=== PATIENT | female | born 1985 | race Caucasian/White ===

== ENCOUNTER 2016-12-23 08:42 | Emergency (ER) | payer SELFPAY ==
[~2016-12-23] VITALS: Ht 167.6 cm; Wt 79.5 kg
[2016-12-23 08:44] VITALS: BP 171/93; PULSE 76; RESP 13; TEMP 98.5; O2SAT 99
[2016-12-23 08:55] VITALS: BP 148/94; PULSE 81; RESP 16; O2SAT 100
[2016-12-23] MEDS ORDERED: NAPR500 PO (08:56)
[2016-12-23] MEDS ORDERED: VENTAER INH (08:56)
[2016-12-23] MEDS ORDERED: DOXY100C PO (09:43)
[2016-12-23] MEDS ORDERED: METR-1 PO (09:43)
[2016-12-23] MEDS ORDERED: IBUP800T23 PO (09:43)
[2016-12-23] MEDS ORDERED: ULTR50TA5 PO (09:43)
--- NOTE | 2016-12-23 09:43 | PD ---
HPI . Pelvic pain Chief Complaint: Abdominal Pain Time Seen by Provider: 09:06 Travel History International Travel<30 days: No Contact w/Intl Traveler<30days: No Traveled to known affect area: No History of Present Illness HPI This patient presents with a three-day history of pelvic pain. She denies any associated symptoms such as dyspareunia, vaginal discharge, urinary tract symptoms or fever. She states that her symptoms are exacerbated by bending over. She denies any relieving factors. The pain is crampy and is rated 7/10. PFSH Past Medical History Asthma: Yes Headaches: Yes Hypertension: Yes Migraines: Yes Influenza Vaccination: No ?: Not LMP: CURRENTLY ON PERIOD Past Surgical History Section: Yes Cholecystectomy: Yes Eye Surgery: Yes (PLATE UNDER LEFT EYE) Other Surgery: Yes ( ERASMO REMOVED FROM NECK) Social History Alcohol Use: Yes (RARELY) Tobacco Use: Yes (04/06 PPD) Substance Use: No Allergies-Medications (Allergen,Severity, Reaction): Coded Allergies: Penicillins (Verified Allergy, Severe, RESPIRATORY DISTRESS, 12/23/16) amoxicillin (Verified Allergy, Severe, RESPIRATORY DISTRESS, 12/23/16) sumatriptan (Verified Allergy, Severe, RESPIRATORY DISTRESS, 12/23/16) Reported Meds & Prescriptions Reported Meds & Active Scripts Active Ultram (Tramadol HCl) 50 Mg Tab 50 Mg PO Q4H PRN Ibuprofen 800 Mg Tab 800 Mg PO Q8H PRN Flagyl (Metronidazole) 500 Mg Tab 500 Mg PO BID Doxycycline Hyclate 100 Mg Cap 100 Mg PO BID Reported Naprosyn (Naproxen) 500 Mg Tab 660 Mg PO BID PRN Ventolin Hfa 18 GM Inh (Albuterol Sulfate) 90 Mcg/Act Aer 2 Puff INH Q4-6H PRN Review of Systems Except as stated in HPI: all other systems reviewed are Neg General / Constitutional: No: Fever, Chills Gastrointestinal: No: Nausea, Vomiting, Diarrhea Genitourinary: Positive: Pelvic Pain, Vaginal Bleeding (current menses), No: Urgency, Frequency, Dysuria, Dyspareunia, Discharge Physical Exam Narrative GENERAL: Patient is awake and alert and is in no acute distress. SKIN: warm/dry. HEAD: Normocephalic. Atraumatic. EYES: Pupils equal and round. No scleral icterus. No injection or drainage. ENT: No nasal bleeding or discharge. Mucous membranes pink and moist. NECK: Trachea midline. Full range of motion without pain.. CARDIOVASCULAR: Regular rate and rhythm. RESPIRATORY: No accessory muscle use. Nonlabored respirations. GASTROINTESTINAL: Abdomen soft. Nontender. Nondistended. PELVIC: Normal female. Scant blood in the vaginal vault consistent with current menses. Positive cervical motion tenderness and bilateral adnexal tenderness. Her ovaries are easily palpable and there are no masses. Uterus is small and nontender. MUSCULOSKELETAL: No obvious deformities. NEUROLOGICAL: Awake and alert. No obvious cranial nerve deficits. Motor grossly within normal limits. Normal speech. PSYCHIATRIC: Appropriate mood and affect; insight and judgment normal. Data Data Last Documented VS Vital Signs Date Time Temp Pulse Resp B/P (MAP) Pulse Ox O2 Delivery O2 Flow Rate FiO2 12/23/16 08:55 81 16 148/94 (112) 100 Room Air 12/23/16 08:44 98.5 Orders Orders Gc And Chlamydia Pcr (12/23/16 09:06) Wet Prep Profile (12/23/16 09:06) Urinalysis - C+S If Indicated (12/23/16 09:06) Ed Urine Pregnancytest Poc (12/23/16 09:06) Ceftriaxone Inj (Rocephin Inj) (12/23/16 09:45) Lidocaine 1% Inj (50 Ml) (Xylocaine 1% I (12/23/16 09:45) Ketorolac Inj (Toradol Inj) (12/23/16 09:45) Labs Laboratory Tests Test 12/23/16 09:20 Urine Color YELLOW Urine Turbidity CLEAR Urine pH 6.5 Urine Specific [place] 1.022 Urine Protein NEG mg/dL Urine Glucose (UA) NEG mg/dL Urine Ketones NEG mg/dL Urine Occult Blood SMALL Urine Nitrite NEG Urine Bilirubin NEG Urine Urobilinogen LESS THAN 2.0 MG/DL Urine Leukocyte Esterase SMALL Urine RBC 24 /hpf Urine WBC 7 /hpf Urine Squamous Epithelial Cells 1 /hpf Urine Mucus FEW /lpf Microscopic Urinalysis Comment CULT NOT INDICATED Clue Cells (Wet Prep) NONE SEEN Vaginal Trichomonas (Wet Prep) NONE SEEN Vaginal Yeast (Wet Prep) NONE SEEN MDM Medical Decision Making Medical Screen Exam Complete: Yes Emergency Medical Condition: Yes Differential Diagnosis Differential diagnosis of pelvic pain includes but is not limited to UTI, PID, ectopic , spontaneous AB, constipation, viral illness Narrative Course This patient presents with a 3 day history of pelvic pain. She has tenderness to palpation on bimanual examination. There are no masses palpated. She will be treated presumptively for PID. HCG is negative. UA is negative for infection. Diagnosis Primary Impression: Pelvic pain in female Referrals: Rate Clerk Passenger Patient Instructions: General Instructions, Pelvic Pain (ED) Med/Other Pt SpecificInfo: Prescription(s) given Scripts Tramadol (Ultram) 50 Mg Tab 50 MG PO Q4H Y for PAIN, #12 TAB 0 Refills Prov: Eusebia Lawson MD 12/23/16 Ibuprofen (Ibuprofen) 800 Mg Tab 800 MG PO Q8H Y for Pain/Inflammation, #60 TAB 0 Refills Prov: Eusebia Lawson MD 12/23/16 Metronidazole (Flagyl) 500 Mg Tab 500 MG PO BID for Infection, #14 TAB 0 Refills Prov: Eusebia Lawson MD 12/23/16 Doxycycline Hyclate (Doxycycline Hyclate) 100 Mg Cap 100 MG PO BID for Infection, #20 CAP 0 Refills Prov: Eusebia Lawson MD 12/23/16 Disposition: 01 DISCHARGE HOME Condition: Stable Eusebia Lawson MD Dec 23, 2016 09:43
[2016-12-23 09:45] LABS: BLOOD, URINE SMALL (NEG); COMMENT (UR) CULT NOT INDICATED; CULTURE IF INDICATED CULT NOT INDICATED; GLUCOSE,URINE NEG (NEG); KETONE, URINE NEG (NEG); MUCUS URINE FEW /lpf (OCC); NITRITE,URINE NEG (NEG); PH, URINE 6.5 (5.0-8.5); SQUAMOUS EPITHELIAL CELL URINE 1 /hpf (0-5); URINE COLOR YELLOW (YELLW/STRAW)
[2016-12-23] MEDS ORDERED: cefTRIAXone 250 MG VIAL IM ONE (09:45)
[2016-12-23] MEDS ORDERED: KETOROLAC TROMETHAMINE 60 MG/2 ML (IM) VIAL IM ONE (09:45)
[2016-12-23] MEDS ORDERED: LIDOCAINE HCL 1% 50 ML VIAL XX ONE (09:45)
[2016-12-23 12:22] LABS: CHLAMYDIA PCR NOT DETECTED (NOT DETECT); NEISSERIA PCR NOT DETECTED (NOT DETECT)
== END 2016-12-23 10:19 | disposition home or self-care (01) ==
LOC: NEPD 08:42
DX: R10.2 Pelvic and perineal pain (principal); F17.200 Nicotine dependence, unspecified, uncomplicated
CPT/HCPCS: 81001; 84703; 87210; 87491; 87591; 96372; 99284; J0696; J1885

== ENCOUNTER 2016-12-28 04:30 | Emergency (ER) | payer SELFPAY ==
[~2016-12-28] VITALS: Ht 167.6 cm; Wt 79.5 kg
[~2016-12-28 04:30] MED LIST: DOXY100C PO; IBUP800T23 PO; METR-1 PO; NAPR500 PO; ULTR50TA5 PO; VENTAER INH
[2016-12-28 04:33] VITALS: BP 145/92; PULSE 87; RESP 18; TEMP 98; O2SAT 100
--- NOTE | 2016-12-28 05:36 | PD ---
HPI Chief Complaint: Abdominal Pain Time Seen by Provider: 05:14 Travel History International Travel<30 days: No Contact w/Intl Traveler<30days: No Traveled to known affect area: No History of Present Illness HPI The patient is a 31 year old female who presents to the [facility] emergency department with a history of a long standing problem with ovarian cysts. The patient reports that she has intermittent pains related to ovarian cysts, however she has not seen a senior marketing coordinator since 2008. The patient reports that the pelvic pain this time began on Monday. She reports that she was seen in the emergency department related to this and did have a pelvic examination done and was diagnosed with a pelvic infection. She reports that she received a prescription for doxycycline and Flagyl. The doxycycline was too expensive, therefore she did not fill it. The patient reports that she completed the Flagyl prescription. The patient reports that she also ran out of the tramadol and ibuprofen that she was taking. She has not followed up with a senior marketing coordinator locally yet. She denies having any fevers. She reports that the pain has been constant in the right lower quadrant and worse and today thus prompting her to come to the emergency department. She reports that she had pain with intercourse which was new. She denies having any vaginal discharge. She denies having any new sexual partners. The patient denies having any recent fevers. She reports that she has developed a cough today. Otherwise on review of systems she denies having any neck pain, chest pain, shortness of breath, vomiting, diarrhea, or neurologic symptoms. The patient reports that she did have some dysuria with urinating prior to arrival. She denies having any urinary frequency or urgency. LMP: 12/18. She has irregular cycles. [facility] Past Medical History Narrative Medical The patient's past medical history is significant for asthma, ovarian cysts, headaches, hypertension. Asthma: Yes Diminished Hearing: No Headaches: Yes Hypertension: Yes Migraines: Yes ?: Not LMP: 12/18/16 Past Surgical History Narrative Surgical The patient's past surgical history is significant for cholecystectomy, BTL, left ankle ORIF, right knee arthroscopy, left facial surgery. Section: Yes Cholecystectomy: Yes Eye Surgery: Yes (PLATE UNDER LEFT EYE) Other Surgery: Yes ( ERASMO REMOVED FROM NECK) Social History Alcohol Use: Yes (RARELY) Tobacco Use: Yes (1/4 PPD) Substance Use: No Allergies-Medications (Allergen,Severity, Reaction): Coded Allergies: Penicillins (Verified Allergy, Severe, RESPIRATORY DISTRESS, 12/28/16) amoxicillin (Verified Allergy, Severe, RESPIRATORY DISTRESS, 12/28/16) sumatriptan (Verified Allergy, Severe, RESPIRATORY DISTRESS, 12/28/16) latex (Verified Allergy, Mild, Rash, 12/28/16) Reported Meds & Prescriptions Reported Meds & Active Scripts Active Ultram (Tramadol HCl) 50 Mg Tab 50 Mg PO Q4H PRN Ibuprofen 800 Mg Tab 800 Mg PO Q8H PRN Reported Naprosyn (Naproxen) 500 Mg Tab 660 Mg PO BID PRN Ventolin Hfa 18 GM Inh (Albuterol Sulfate) 90 Mcg/Act Aer 2 Puff INH Q4-6H PRN Review of Systems Except as stated in HPI: all other systems reviewed are Neg General / Constitutional: No: Fever Eyes: No: Visual changes HENT: No: Headaches Cardiovascular: No: Chest Pain or Discomfort Respiratory: No: Shortness of Breath Gastrointestinal: Positive: Abdominal Pain Genitourinary: Positive: Pelvic Pain, No: Dysuria, Discharge, Vaginal Bleeding Musculoskeletal: No: Pain Skin: No Rash Neurologic: No: Weakness Psychiatric: No: Depression Endocrine: No: Polydipsia Hematologic/Lymphatic: No: Easy Bruising Physical Exam Narrative General: The patient is well-developed well-nourished female in no acute distress. Head and Neck exam: Head is normocephalic atraumatic. Eyes: EOMI, pupils are equal round and reactive to light. Nose: Midline septum with pink mucous membranes Mouth: Dentition unremarkable. Moist mucus membranes. Posterior oropharynx is not erythematous. No tonsillar hypertrophy. Uvula midline. Airway patent. Neck: No palpable lymphadenopathy. No nuchal rigidity. No thyromegaly. Cardiovascular: Regular rate and rhythm without murmurs, gallops, or rubs. Lungs: Clear to auscultation bilaterally. No wheezes, rhonchi, or rales. Abdomen: Soft, with tenderness on palpation along the suprapubic area and bilateral lower quadrants of the abdomen worse in the right compared to the left. No guarding, rebound, or rigidity. Normal bowel sounds are audible. No tenderness on palpation specifically over McBurney's point. Negative Ocampo sign. Extremities: No clubbing, cyanosis, or edema. 2+ pulses in all 4 extremities. No calf tenderness on palpation. Back: No costovertebral angle tenderness to palpation. Neurologic Exam: Grossly nonfocal. Skin Exam: No rash noted. Intact skin that is warm and dry. Data Data Last Documented VS Vital Signs Date Time Temp Pulse Resp B/P (MAP) Pulse Ox O2 Delivery O2 Flow Rate FiO2 12/28/16 04:33 98.0 87 18 145/92 (109) 100 Orders Orders Us Pelvis Comp Medical Billing Instructor/Non-Preg (12/28/16 05:38) Complete Blood Count With Diff (12/28/16 05:38) Basic Metabolic Panel (Bmp) (12/28/16 05:38) C-Reactive Protein (Crp) (12/28/16 05:38) Urinalysis - C+S If Indicated (12/28/16 05:38) Iv Access Insert/Monitor (12/28/16 05:38) Ecg Monitoring (12/28/16 05:38) Oximetry (12/28/16 05:38) Ed Urine Pregnancytest Poc (12/28/16 05:38) Ketorolac Inj (Toradol Inj) (12/28/16 05:45) Gc And Chlamydia Pcr (12/28/16 05:45) Labs Laboratory Tests Test 12/28/16 05:50 White Blood Count 10.6 TH/MM3 Red Blood Count 4.22 MIL/MM3 Hemoglobin 12.9 GM/DL Hematocrit 38.1 % Mean Corpuscular Volume 90.2 FL Mean Corpuscular Hemoglobin 30.5 PG Mean Corpuscular Hemoglobin Concent 33.8 % Red Cell Distribution Width 13.0 % Platelet Count 325 TH/MM3 Mean Platelet Volume 8.5 FL Neutrophils (%) (Auto) 61.1 % Lymphocytes (%) (Auto) 27.2 % Monocytes (%) (Auto) 8.1 % Eosinophils (%) (Auto) 3.3 % Basophils (%) (Auto) 0.3 % Neutrophils # (Auto) 6.5 TH/MM3 Lymphocytes # (Auto) 2.9 TH/MM3 Monocytes # (Auto) 0.9 TH/MM3 Eosinophils # (Auto) 0.4 TH/MM3 Basophils # (Auto) 0.0 TH/MM3 CBC Comment DIFF FINAL Differential Comment Urine Color YELLOW Urine Turbidity CLEAR Urine pH 6.0 Urine Specific [place] 1.019 Urine Protein NEG mg/dL Urine Glucose (UA) NEG mg/dL Urine Ketones NEG mg/dL Urine Occult Blood NEG Urine Nitrite NEG Urine Bilirubin NEG Urine Urobilinogen LESS THAN 2.0 MG/DL Urine Leukocyte Esterase TRACE Urine RBC LESS THAN 1 /hpf Urine WBC 3 /hpf Urine Squamous Epithelial Cells 1 /hpf Microscopic Urinalysis Comment CULT NOT INDICATED Blood Urea Nitrogen 19 MG/DL Creatinine 0.81 MG/DL Random Glucose 99 MG/DL Calcium Level 9.0 MG/DL Sodium Level 137 MEQ/L Potassium Level 4.2 MEQ/L Chloride Level 107 MEQ/L Carbon Dioxide Level 24.5 MEQ/L Anion Gap 6 MEQ/L Estimat Glomerular Filtration Rate 83 ML/MIN C-Reactive Protein LESS THAN 0.29 MG/DL [facility] Medical Decision Making Medical Screen Exam Complete: Yes Emergency Medical Condition: Yes Medical Record Reviewed: Yes Differential Diagnosis Ovarian torsion, versus urinary tract infection, versus endometriosis, versus ovarian cysts Narrative Course During the course of the patients emergency department visit, the patients history, examination, and differential diagnosis were reviewed with the patient. The patient had IV access obtained and blood work sent for analysis. The patient's electronic medical record was reviewed. The patient did have a urinalysis done on her last visit, a pelvic examination, however no wet prep for GC or chlamydia was done during the last emergency department visit. The patient was given a dose of Rocephin in the emergency department. An ultrasound of the pelvis has been ordered. The patient was initially provided Toradol for pain 30 mg IV. The patients laboratory studies were reviewed and remarkable for a white count 10.6, hemoglobin 12.9, platelets 325 with 8.1 monocytes, basic metabolic profile is remarkable for a BUN of 19, GFR of 83, C-reactive protein less than 0.29. Urinalysis shows trace leukocyte esterase otherwise were unremarkable. The patient's ultrasound is pending at the conclusion of my shift. The patient' s case was checked out to the oncoming emergency physician to disposition the patient based on the conclusion of her workup. Diagnosis Primary Impression: Abdominal pain Qualified Codes: R10.30 - Lower abdominal pain, unspecified Ricarda Carroll MD Dec 28, 2016 05:36
[2016-12-28] MEDS ORDERED: KETOROLAC TROMETHAMINE 30 MG/ML (IVP) VIAL IV PUSH ONE (05:45)
[2016-12-28 06:07] LABS: AUTOMATED NEUTROPHIL # 6.5 TH/MM3 (1.8-7.7); BASOPHIL % 0.3 % (0.0-2.0); EOSINOPHIL # 0.4 TH/MM3 (0-0.4); EOSINOPHIL % 3.3 % (0.0-4.0); HEMATOCRIT 38.1 % (35.0-46.0); HEMO FLAGS DIFF FINAL; LYMPH % 27.2 % (9.0-44.0); LYMPHOCYTE # 2.9 TH/MM3 (1.0-4.8); MEAN CELL VOLUME 90.2 FL (80.0-100.0); MEAN CORPUSCULAR HEMOGLOBIN 30.5 PG (27.0-34.0); MEAN CORPUSCULAR HGB CONC 33.8 % (32.0-36.0); MONO % 8.1 % (0.0-8.0); NEUT % 61.1 % (16.0-70.0); PLATELET COUNT 325 TH/MM3 (150-450); RED BLOOD COUNT 4.22 MIL/MM3 (4.00-5.30); WHITE BLOOD COUNT 10.6 TH/MM3 (4.0-11.0)
[2016-12-28 06:21] LABS: BLOOD, URINE NEG (NEG); GLUCOSE,URINE NEG (NEG); KETONE, URINE NEG (NEG); NITRITE,URINE NEG (NEG); SQUAMOUS EPITHELIAL CELL URINE 1 /hpf (0-5); URINE COLOR YELLOW (YELLW/STRAW)
[2016-12-28 06:23] LABS: COMMENT (UR) CULT NOT INDICATED; CULTURE IF INDICATED CULT NOT INDICATED
[2016-12-28 06:27] LABS: ANION GAP 6 MEQ/L (5-15); BICARBONATE 24.5 MEQ/L (21.0-32.0); BLOOD UREA NITROGEN 19 MG/DL (7-18); CHLORIDE 107 MEQ/L (98-107); GLOMERULAR FILTRATION RATE 83 ML/MIN (>89); POTASSIUM 4.2 MEQ/L (3.5-5.1); SODIUM (NA) 137 MEQ/L (136-145)
[2016-12-28 07:25] VITALS: RESP 16; O2SAT 97
[2016-12-28 07:30] VITALS: BP 140/89; PULSE 82; RESP 16; O2SAT 100
[2016-12-28 07:49] LABS: CHLAMYDIA PCR NOT DETECTED (NOT DETECT); NEISSERIA PCR NOT DETECTED (NOT DETECT)
--- NOTE | 2016-12-28 09:29 | RADRPT ---
EXAM DATE/TIME: 12/28/2016 07:31 [facility] COMPARISON: No previous studies available for comparison. INDICATIONS : Right pelvic pain for 1 week. MEDICAL HISTORY : Hypertension. Migriane. Ovarian cysts. Asthma. SURGICAL HISTORY : section. Cholecystectomy. Right knee surgery. Left ankle surgery. Birthmark removed from n reggie. ENCOUNTER: Initial ACUITY: 1 week PAIN SCORE: 6/10 LOCATION: Bilateral pelvis MEASUREMENTS: UTERUS: 9.4 x 4.0 x 5.6 cm ENDOMETRIAL STRIPE: 7 mm RIGHT OVARY: 2.6 x 1.6 x 1.8 cm LEFT OVARY: 3.4 x 1.6 x 2.0 cm FINDINGS: UTERUS: The myometrium has homogeneous echotexture without mass. RIGHT OVARY: Ovary contains no mass or significant cystic lesion. LEFT OVARY: Ovary contains no mass or significant cystic lesion. MISCELLANEOUS: No free fluid. CONCLUSION: 1. Unremarkable ultrasound examination of the pelvis. No findings of torsion Moi Torrez MD on December 28, 2016 at 9:26 Board Certified Radiologist. This report was verified electronically.
[2016-12-28] MEDS ORDERED: IBUP-1129 PO (09:41)
--- NOTE | 2016-12-28 09:41 | PD ---
Physical Exam Date Seen by Provider: Dec 28, 2016 Time Seen by Provider: 07:00 Narrative Patient seen and evaluated initially by Dr. Carroll, please see Dr. Carroll's note for further details. Signed out to me awaiting ultrasound. Laboratory Tests Test 12/28/16 05:50 Monocytes (%) (Auto) 8.1 % (0.0-8.0) Urine Leukocyte Esterase TRACE (NEG) Blood Urea Nitrogen 19 MG/DL (7-18) Estimat Glomerular Filtration Rate 83 ML/MIN (>89) Last 24 hours Impressions Pelvis Ultrasound 12/28/16 0538 Signed Impressions: Service Date/Time: Wednesday, December 28, 2016 07:31 - CONCLUSION: 1. Unremarkable ultrasound examination of the pelvis. No findings of torsion Moi Torrez MD Ultrasound didn't show any signs of acute processes. At this point, my plan would be to release her with symptomatic relief or pain and follow-up to DORM[facility]EEPER or primary care doctor. Finish prescriptions as directed. Return for any worsening in pain, vomiting, fevers, or new symptoms as needed. The plan has been discussed with her and she states understanding. Data Data Last Documented VS Vital Signs Date Time Temp Pulse Resp B/P (MAP) Pulse Ox O2 Delivery O2 Flow Rate FiO2 12/28/16 07:25 16 97 Room Air 12/28/16 04:33 98.0 87 Orders Orders Complete Blood Count With Diff (12/28/16 05:38) Basic Metabolic Panel (Bmp) (12/28/16 05:38) C-Reactive Protein (Crp) (12/28/16 05:38) Urinalysis - C+S If Indicated (12/28/16 05:38) Iv Access Insert/Monitor (12/28/16 05:38) Ecg Monitoring (12/28/16 05:38) Oximetry (12/28/16 05:38) Ed Urine Pregnancytest Poc (12/28/16 05:38) Ketorolac Inj (Toradol Inj) (12/28/16 05:45) Gc And Chlamydia Pcr (12/28/16 05:45) Us Pelvis Comp W Doppler (12/28/16 05:38) Labs Laboratory Tests Test 12/28/16 05:50 White Blood Count 10.6 TH/MM3 Red Blood Count 4.22 MIL/MM3 Hemoglobin 12.9 GM/DL Hematocrit 38.1 % Mean Corpuscular Volume 90.2 FL Mean Corpuscular Hemoglobin 30.5 PG Mean Corpuscular Hemoglobin Concent 33.8 % Red Cell Distribution Width 13.0 % Platelet Count 325 TH/MM3 Mean Platelet Volume 8.5 FL Neutrophils (%) (Auto) 61.1 % Lymphocytes (%) (Auto) 27.2 % Monocytes (%) (Auto) 8.1 % Eosinophils (%) (Auto) 3.3 % Basophils (%) (Auto) 0.3 % Neutrophils # (Auto) 6.5 TH/MM3 Lymphocytes # (Auto) 2.9 TH/MM3 Monocytes # (Auto) 0.9 TH/MM3 Eosinophils # (Auto) 0.4 TH/MM3 Basophils # (Auto) 0.0 TH/MM3 CBC Comment DIFF FINAL Differential Comment Urine Color YELLOW Urine Turbidity CLEAR Urine pH 6.0 Urine Specific [place] 1.019 Urine Protein NEG mg/dL Urine Glucose (UA) NEG mg/dL Urine Ketones NEG mg/dL Urine Occult Blood NEG Urine Nitrite NEG Urine Bilirubin NEG Urine Urobilinogen LESS THAN 2.0 MG/DL Urine Leukocyte Esterase TRACE Urine RBC LESS THAN 1 /hpf Urine WBC 3 /hpf Urine Squamous Epithelial Cells 1 /hpf Microscopic Urinalysis Comment CULT NOT INDICATED Blood Urea Nitrogen 19 MG/DL Creatinine 0.81 MG/DL Random Glucose 99 MG/DL Calcium Level 9.0 MG/DL Sodium Level 137 MEQ/L Potassium Level 4.2 MEQ/L Chloride Level 107 MEQ/L Carbon Dioxide Level 24.5 MEQ/L Anion Gap 6 MEQ/L Estimat Glomerular Filtration Rate 83 ML/MIN C-Reactive Protein LESS THAN 0.29 MG/DL Chlamydia trachomatis DNA (PCR) NOT DETECTED Neisseria gonorrhoeae DNA (PCR) NOT DETECTED [facility] Medical Record Reviewed: Yes Supervised Visit with JOSE E: No Diagnosis Primary Impression: Abdominal pain Qualified Codes: R10.30 - Lower abdominal pain, unspecified Med/Other Pt SpecificInfo: Prescription(s) given Scripts Ibuprofen (Motrin Ib) 200 Mg Tablet 600 MG PO QID Y for PAIN SCALE 1 TO 10, #28 Prov: Alfredito Burton MD 12/28/16 Disposition: 01 DISCHARGE HOME Condition: Stable Alfredito Burton MD Dec 28, 2016 09:41
== END 2016-12-28 10:00 | disposition home or self-care (01) ==
LOC: NEPE 04:30
DX: R10.30 Lower abdominal pain, unspecified (principal); R05 Cough; R30.0 Dysuria; J45.909 Unspecified asthma, uncomplicated; I10 Essential (primary) hypertension; F17.200 Nicotine dependence, unspecified, uncomplicated; Z79.899 Other long term (current) drug therapy; Z88.0 Allergy status to penicillin; Z88.8 Allergy status to other drugs, medicaments and biological substances
CPT/HCPCS: 76856; 80048; 81001; 84703; 85025; 86140; 87491; 87591; 93975; 96374; 99285; J1885

== ENCOUNTER 2017-02-19 17:52 | Emergency (ER) | payer SELFPAY ==
[~2017-02-19] VITALS: Ht 167.6 cm; Wt 79.5 kg
[~2017-02-19 17:52] MED LIST changes: -DOXY100C PO; +IBUP-1129 PO; +IBUP1TAB7 PO; -IBUP800T23 PO; -METR-1 PO; +TRAM50 PO; -ULTR50TA5 PO
[2017-02-19 17:53] VITALS: BP 174/100; PULSE 103; RESP 20; TEMP 99; O2SAT 99
--- NOTE | 2017-02-19 18:33 | RADRPT ---
EXAM DATE/TIME: 02/19/2017 18:20 [facility] COMPARISON: No previous studies available for comparison. INDICATIONS : Pain from fall in shower. MEDICAL HISTORY : Prior fracture. SURGICAL HISTORY : Surgical repair. Hardware removal. ENCOUNTER: Initial ACUITY: 1 day PAIN SCORE: 9/10 LOCATION: Left ankle. FINDINGS: Three view exam was performed of the left ankle. The bony structures are in normal alignment. No ev idence of fracture, dislocation, or soft tissue swelling. The ankle mortise is intact. No radiopaqu e foreign bodies are seen. Bony mineralization is normal. There is a single screw which traverses th e distal fibula. No evidence for acute fracture. CONCLUSION: No acute disease. Javier Suggs MD on February 19, 2017 at 18:31 Board Certified Radiologist. This report was verified electronically.
[2017-02-19] MEDS ORDERED: NABU1TAB37 PO (18:55)
--- NOTE | 2017-02-19 18:55 | PD ---
HPI . Ankle injury Chief Complaint: Injury Time Seen by Provider: 18:40 Travel History International Travel<30 days: No Contact w/Intl Traveler<30days: No Traveled to known affect area: No History of Present Illness HPI This patient presents with chief complaint of left ankle injury. Onset was about 3:30 PM today. She states that she slipped getting out of the shower rolling her ankle. No pain to the lateral aspect of the ankle. Pain has been unrelieved by Naprosyn and ice. Pain is exacerbated by movement of the ankle and by standing and walking on the ankle. Garth a throbbing pain which she rates 4-7/10 depending upon activity. Patient has had a previous left ankle fracture and has hardware in her ankle. [facility] Past Medical History Asthma: Yes Diabetes: No (BORDERLINE) Diminished Hearing: No Headaches: Yes Hypertension: Yes Migraines: Yes Influenza Vaccination: No ?: Not Para: 3 Past Surgical History Section: Yes Cholecystectomy: Yes Eye Surgery: Yes (PLATE UNDER LEFT EYE) Other Surgery: Yes ( ERASMO REMOVED FROM NECK) Social History Alcohol Use: Yes (RARELY) Tobacco Use: Yes (/ PPD) Substance Use: No Allergies-Medications (Allergen,Severity, Reaction): Coded Allergies: Penicillins (Verified Allergy, Severe, RESPIRATORY DISTRESS, 02/19/17) amoxicillin (Verified Allergy, Severe, RESPIRATORY DISTRESS, 02/19/17) sumatriptan (Verified Allergy, Severe, RESPIRATORY DISTRESS, 02/19/17) latex (Verified Allergy, Mild, Rash, 02/19/17) Reported Meds & Prescriptions Reported Meds & Active Scripts Active Reported Ventolin Hfa 18 GM Inh (Albuterol Sulfate) 90 Mcg/Act Aer 2 Puff INH Q4-6H PRN Review of Systems Except as stated in HPI: all other systems reviewed are Neg Physical Exam Narrative GENERAL: Awake and alert and in no acute distress. SKIN: Warm and dry. Mild bruising and swelling of the left lateral ankle. HEAD: Normocephalic/atraumatic. EYES: Pupils are equal. Extraocular movements are intact. NECK: Normal range of motion. CARDIOVASCULAR: Regular rate and rhythm. RESPIRATORY: Nonlabored respirations. MUSCULOSKELETAL: Atraumatic. Tender in the left lateral ankle especially over the anterior talofibular ligament. The ankle is stable. Distally neurovascularly intact. NEUROLOGICAL: Nonfocal. PSYCHIATRIC: Appropriate mood and affect. Data Data Last Documented VS Vital Signs Date Time Temp Pulse Resp B/P (MAP) Pulse Ox O2 Delivery O2 Flow Rate FiO2 02/19/17 17:53 99.0 103 20 174/100 (124) 99 Room Air Orders Orders Ankle, Complete ([id number]) (02/19/17 18:08) [employer] Request For Service (02/19/17 18:49) Simon Bandage (02/19/17 18:49) Crutches (02/19/17 ) Acetamin-Hydrocod 325-5 Mg ([place] 5-325 (02/19/17 19:00) Ed Discharge Order (02/19/17 18:49) MDM Medical Decision Making Medical Screen Exam Complete: Yes Emergency Medical Condition: Yes Differential Diagnosis Differential diagnosis of extremity trauma includes but is not limited to fracture, sprain or strain, dislocation, contusion Narrative Course This patient presents for the evaluation of a left ankle injury. She is tender over the left anterior talofibular ligament. The ankle is stable. Last Impressions Ankle X-Ray 02/19/[id number] Signed Impressions: Service Date/Time: Sunday, February 19, 2017 18:20 - CONCLUSION: No acute disease. Javier Suggs MD X-ray was independently viewed by me. I have instructed the patient in RICE. I will give her prescription for Relafen for pain. Diagnosis Primary Impression: Left ankle sprain Qualified Codes: S93.432A - Sprain of tibiofibular ligament of left ankle, initial encounter Patient Instructions: Ankle Sprain (DC), General Instructions Med/Other Pt SpecificInfo: Prescription(s) given Scripts Nabumetone (Nabumetone) 500 Mg Tab 500 MG PO BID for Pain-Inflammation, #60 TAB 0 Refills Prov: Eusebia Lawson MD 02/19/17 Disposition: 01 DISCHARGE HOME Condition: Stable Eusebia Lawson MD Feb 19, 2017 18:55
[2017-02-19] MEDS ORDERED: ACETAMINOPHEN/HYDROcodone 325 MG/5 MG TAB PO ONE (19:00)
== END 2017-02-19 19:26 | disposition home or self-care (01) ==
LOC: NEPD 17:52
DX: S93.432A Sprain of tibiofibular ligament of left ankle, initial encounter (principal); J45.909 Unspecified asthma, uncomplicated; I10 Essential (primary) hypertension; F17.200 Nicotine dependence, unspecified, uncomplicated; W01.0XXA Fall on same level from slipping, tripping and stumbling without subsequent striking against object, initial encounter; Z88.0 Allergy status to penicillin; Z88.8 Allergy status to other drugs, medicaments and biological substances
CPT/HCPCS: 73610; 99283; E0113; L1906

== ENCOUNTER 2017-03-23 10:10 | Emergency (ER) | payer SELFPAY ==
[~2017-03-23 10:10] MED LIST changes: -IBUP-1129 PO; -IBUP1TAB7 PO; +NABU1TAB37 PO; -NAPR500 PO; -TRAM50 PO
[2017-03-23 10:13] VITALS: BP 171/96; PULSE 91; RESP 20; TEMP 98.5; O2SAT 99
--- NOTE | 2017-03-23 10:25 | PD ---
HPI Chief Complaint: Cold / Flu Symptoms Time Seen by Provider: 10:21 Travel History International Travel<30 days: No Contact w/Intl Traveler<30days: No Traveled to known affect area: No History of Present Illness HPI 31-year-old female presents to emergency department for evaluation of cough, chest congestion, fever, chills, body aches worsening over last 2 weeks. Patient states her cough is now productive of a yellow white sputum. Denies any significant chest pain except for with cough. Denies any recent travel, or history of DVT. Denies any nausea vomiting. No diarrhea. Patient has no other symptoms to report. PFSH Past Medical History Asthma: Yes Diabetes: No (BORDERLINE) Diminished Hearing: No Headaches: Yes Hypertension: Yes Migraines: Yes Para: 3 Past Surgical History Section: Yes Cholecystectomy: Yes Eye Surgery: Yes (PLATE UNDER LEFT EYE) Other Surgery: Yes ( ERASMO REMOVED FROM NECK) Social History Alcohol Use: Yes (RARELY) Tobacco Use: Yes (04/06 PPD) Substance Use: No Allergies-Medications (Allergen,Severity, Reaction): Coded Allergies: Penicillins (Verified Allergy, Severe, RESPIRATORY DISTRESS, 02/19/17) amoxicillin (Verified Allergy, Severe, RESPIRATORY DISTRESS, 02/19/17) sumatriptan (Verified Allergy, Severe, RESPIRATORY DISTRESS, 02/19/17) latex (Verified Allergy, Mild, Rash, 02/19/17) Reported Meds & Prescriptions Reported Meds & Active Scripts Active Proair Hfa 8.5 GM Inh (Albuterol Sulfate) 90 Mcg/Act Aer 2 Puff INH Q4HR PRN 108 mcg/actuation Prednisone 50 Mg Tab 50 Mg PO DAILY 5 Days Zithromax Z-Colt (Azithromycin) 250 Mg Dspk 250 Mg PO DIRECTED 500 MG (2 tabs) day 1, then 1 tab days 2-5. Review of Systems Except as stated in HPI: all other systems reviewed are Neg Physical Exam Narrative GENERAL: Well-nourished male patient, ambulatory and in no acute distress. SKIN: Focused skin assessment warm/dry. HEAD: Atraumatic. Normocephalic. EYES: Pupils equal and round. No scleral icterus. No injection or drainage. ENT: No nasal bleeding or discharge. Drinks is erythematous without exudate. Airway is patent. Mucous membranes pink and moist. NECK: Trachea midline. No JVD. CARDIOVASCULAR: Regular rate and rhythm. No murmur appreciated. RESPIRATORY: No accessory muscle use. Coarse breath sounds and a faint Inspiratory wheeze to auscultation. Breath sounds equal bilaterally. GASTROINTESTINAL: Abdomen soft, non-tender, nondistended. Hepatic and splenic margins not palpable. MUSCULOSKELETAL: No obvious deformities. No clubbing. No cyanosis. No edema. NEUROLOGICAL: Awake and alert. No obvious cranial nerve deficits. Motor grossly within normal limits. Normal speech. PSYCHIATRIC: Appropriate mood and affect; insight and judgment normal. Data Data Last Documented VS Vital Signs Date Time Temp Pulse Resp B/P (MAP) Pulse Ox O2 Delivery O2 Flow Rate FiO2 03/23/17 11:44 03/23/17 10:13 98.5 91 20 99 Room Air Orders Orders Influenzae A/B Antigen (03/23/17 10:33) Albuterol-Ipratropium Neb (Duoneb Neb) (03/23/17 10:45) Dexamethasone Inj (Decadron Inj) (03/23/17 10:45) Ed Discharge Order (03/23/17 11:31) [facility] Medical Decision Making Medical Screen Exam Complete: Yes Emergency Medical Condition: Yes Medical Record Reviewed: Yes Differential Diagnosis Influenza versus pneumonia versus bronchitis versus other URI Narrative Course 31-year-old female presents to the emergency department for evaluation. Patient does have a coarse cough, coarse respirations, and a faint inspiratory wheeze. Patient is given albuterol treatment and Decadron. Influenza is negative. Due to duration of symptoms, worsening over the course of 2 weeks, patient will be started on azithromycin Z-Colt, short course oral steroids, and provided albuterol inhaler. She is encouraged to follow-up with her primary care provider and return immediately with any acute worsening of symptoms. Diagnosis Primary Impression: URI (upper respiratory infection) Qualified Codes: J06.9 - Acute upper respiratory infection, unspecified Referrals: Primary Care Physician Patient Instructions: General Instructions, Upper Respiratory Infection (ED) Additional Instructions: Humidified air may help to alleviate symptoms Tylenol and/or ibuprofen as directed on the package as needed for fever and/or pain Stop smoking tobacco cigarettes Return immediately to the emergency department with any acute worsening symptoms Med/Other Pt SpecificInfo: Prescription(s) given Scripts Albuterol 8.5 GM Inh (Proair Hfa 8.5 GM Inh) 90 Mcg/Act Aer 2 PUFF INH Q4HR Y for SHORTNESS OF BREATH, #1 INHALER 0 Refills 108 mcg/actuation Prov: Elke Tubbs 03/23/17 Prednisone (Prednisone) 50 Mg Tab 50 MG PO DAILY for 5 Days, #5 TAB 0 Refills Prov: Elke Tubbs 03/23/17 Azithromycin (Zithromax Z-Colt) 250 Mg Dspk 250 MG PO DIRECTED for Infection, #1 DSPK 0 Refills 500 MG (2 tabs) day 1, then 1 tab days 2-5. Prov: Elke Tubbs 03/23/17 Disposition: 01 DISCHARGE HOME Condition: Stable Elke Tubbs Mar 23, 2017 10:25
[2017-03-23] MEDS ORDERED: DEXAMETHASONE SOD PHOS 4 MG/ML VIAL IM ONE (10:45)
[2017-03-23] MEDS: RESP: ALBUTEROL 2.5 MG/IPRATROPIUM 0.5 MG NEB (SCH) INH (11:09)
[2017-03-23] MEDS ORDERED: ZITHTAB PO (11:33)
[2017-03-23] MEDS ORDERED: ALBUAER3 INH (11:33)
[2017-03-23] MEDS ORDERED: PRED50 PO (11:33)
== END 2017-03-23 11:45 | disposition home or self-care (01) ==
LOC: NEPD 10:10
DX: J06.9 Acute upper respiratory infection, unspecified (principal); J45.909 Unspecified asthma, uncomplicated; I10 Essential (primary) hypertension; F17.200 Nicotine dependence, unspecified, uncomplicated; Z79.899 Other long term (current) drug therapy; Z88.0 Allergy status to penicillin; Z88.8 Allergy status to other drugs, medicaments and biological substances
CPT/HCPCS: 87804; 94664; 96372; 99284; J1100

== ENCOUNTER 2017-06-01 06:10 | Observation (INO) | payer SELFPAY ==
[~2017-06-01] VITALS: Ht 167.6 cm; Wt 92.0 kg
[2017-06-01] VITALS (12 sets, daily range): BP systolic 109–154; BP diastolic 65–96; PULSE 56–108; RESP 16–20; TEMP 97.7–98.3; O2SAT 97–99
[~2017-06-01 06:10] MED LIST changes: +ALBUAER3 INH; -NABU1TAB37 PO; +PRED50 PO; -VENTAER INH; +ZITHTAB PO
[2017-06-01] MEDS ORDERED: LISI10TA3 PO (06:27)
[2017-06-01] MEDS ORDERED: MECLIZINE HCL 25 MG TAB PO ONE (07:00)
[2017-06-01] MEDS ORDERED: SODIUM CHLOR 0.9% 1000 ML INJ 1,000 ML IV ONE (07:00)
--- NOTE | 2017-06-01 07:04 | PD ---
HPI Chief Complaint: Syncope/Near-Syncope Time Seen by Provider: 06:25 Travel History International Travel<30 days: No Contact w/Intl Traveler<30days: No Traveled to known affect area: No History of Present Illness HPI Patient is a 32-year-old female who for the last 3 days had 3 syncopal episodes the first one she had just come out of the bathroom walking down the fish her boyfriend heard a thump and comes out and finds her face down on the hallway floor she rapidly regained consciousness there was no tonic-clonic activity and she was piggybacked herself baseline. Then yesterday it happened again in the bathroom after having urinated she stood up. She said she fell backwards and hit her head on the bathroom sink but has no lump in no injury no LOC and quickly regained her mentation again. Denies history of seizure and denies prior history of syncope patient denies dysuria she does have slight vertiginous symptoms and male. Again tonight it happened one more time denies chest pain denies shortness of breath denies any other symptoms. Patient does have a history of cholecystitis she's had a she's had to ligation surgery she's had trauma surgical to her knee on the right and she had a birthmark removed from her left neck cheek. In the ER her vitals are tachycardic at 101 BP is 150 /78 PFSH Past Medical History Asthma: Yes Diabetes: No (BORDERLINE) Diminished Hearing: No Headaches: Yes Hypertension: Yes Migraines: Yes ?: Not LMP: 05/18/17 Para: 3 Tubal Ligation: Yes Past Surgical History Section: Yes Cholecystectomy: Yes Eye Surgery: Yes (PLATE UNDER LEFT EYE) Other Surgery: Yes ( ERASMO REMOVED FROM NECK) Social History Alcohol Use: Yes (RARELY) Tobacco Use: Yes (04/06 PPD) Substance Use: No Allergies-Medications (Allergen,Severity, Reaction): Coded Allergies: Penicillins (Verified Allergy, Severe, RESPIRATORY DISTRESS, 02/19/17) amoxicillin (Verified Allergy, Severe, RESPIRATORY DISTRESS, 02/19/17) sumatriptan (Verified Allergy, Severe, RESPIRATORY DISTRESS, 02/19/17) latex (Verified Allergy, Mild, Rash, 02/19/17) Reported Meds & Prescriptions Reported Meds & Active Scripts Active Review of Systems Except as stated in HPI: all other systems reviewed are Neg Neurologic: Positive: Syncope Physical Exam Narrative GENERAL: Awake alert nonseptic nontoxic-appearing oriented 3 SKIN: Warm and dry. HEAD: Atraumatic. Normocephalic. No injury felt on her head EYES: Pupils equal and round. No scleral icterus. No injection or drainage. No nystagmus with horizontal tracking ENT: No nasal bleeding or discharge. Mucous membranes pink and moist. NECK: Trachea midline. No JVD. CARDIOVASCULAR: Regular rate and rhythm. Mild tachycardia sinus tach 101 RESPIRATORY: No accessory muscle use. Clear to auscultation. Breath sounds equal bilaterally. GASTROINTESTINAL: Abdomen soft, non-tender, nondistended. Hepatic and splenic margins not palpable. MUSCULOSKELETAL: Extremities without clubbing, cyanosis, or edema. No obvious deformities. NEUROLOGICAL: Awake and alert. No obvious cranial nerve deficits. Motor grossly within normal limits. Five out of 5 muscle strength in the arms and legs. Normal speech. PSYCHIATRIC: Appropriate mood and affect; insight and judgment normal. Data Data Last Documented VS Orders Orders Electrocardiogram (06/01/17 06:35) Orthostatic Vital Signs (06/01/17 06:37) Meclizine (Antivert) (06/01/17 07:00) Complete Blood Count With Diff (06/01/17 06:59) Comprehensive Metabolic Panel (06/01/17 06:59) Troponin I (06/01/17 06:59) Lipase (06/01/17 06:59) Sodium Chlor 0.9% 1000 Ml Inj (Ns 1000 M (06/01/17 07:00) Urinalysis - C+S If Indicated (06/01/17 08:41) Drug Screen, Random Urine (06/01/17 08:41) Chest, Single Ap (06/01/17 08:42) Ct Brain W/O Iv Contrast(Rout) (06/01/17 08:42) Ed Urine Pregnancytest Poc (06/01/17 08:42) Admit Order (Ed Use Only) (06/01/17 ) Manager Materials Management / Telemetry LAUREN.Q8H (06/01/17 08:44) Vital Signs (Adult) Q4H (06/01/17 08:44) Diet Heart Healthy (06/01/17 Breakfast) Activity Bed Rest (06/01/17 08:44) Labs Laboratory Tests Test 06/01/17 07:26 06/01/17 07:27 06/01/17 08:17 White Blood Count 7.4 TH/MM3 Red Blood Count 4.49 MIL/MM3 Hemoglobin 13.3 GM/DL Hematocrit 39.0 % Mean Corpuscular Volume 86.8 FL Mean Corpuscular Hemoglobin 29.5 PG Mean Corpuscular Hemoglobin Concent 34.0 % Red Cell Distribution Width 13.3 % Platelet Count 363 TH/MM3 Mean Platelet Volume 7.5 FL Neutrophils (%) (Auto) 70.3 % Lymphocytes (%) (Auto) 20.1 % Monocytes (%) (Auto) 7.3 % Eosinophils (%) (Auto) 2.0 % Basophils (%) (Auto) 0.3 % Neutrophils # (Auto) 5.2 TH/MM3 Lymphocytes # (Auto) 1.5 TH/MM3 Monocytes # (Auto) 0.5 TH/MM3 Eosinophils # (Auto) 0.1 TH/MM3 Basophils # (Auto) 0.0 TH/MM3 CBC Comment DIFF FINAL Differential Comment Blood Urea Nitrogen 8 MG/DL Creatinine 0.75 MG/DL Random Glucose 105 MG/DL Total Protein 9.3 GM/DL Albumin 4.1 GM/DL Calcium Level 8.6 MG/DL Alkaline Phosphatase 49 U/L Aspartate Amino Transf (AST/SGOT) 17 U/L Alanine Aminotransferase (ALT/SGPT) 15 U/L Total Bilirubin 0.3 MG/DL Sodium Level 139 MEQ/L Potassium Level 3.7 MEQ/L Chloride Level 106 MEQ/L Carbon Dioxide Level 26.1 MEQ/L Anion Gap 7 MEQ/L Estimat Glomerular Filtration Rate 90 ML/MIN Troponin I LESS THAN 0.02 NG/ML Lipase 159 U/L Ethyl Alcohol Level LESS THAN 3 MG/DL Beta HCG, Qualitative LESS THAN 1 MIU/ML Urine Color LIGHT-YELLOW Urine Turbidity CLEAR Urine pH 6.5 Urine Specific [place] 1.009 Urine Protein NEG mg/dL Urine Glucose (UA) NEG mg/dL Urine Ketones NEG mg/dL Urine Occult Blood NEG Urine Nitrite NEG Urine Bilirubin NEG Urine Urobilinogen LESS THAN 2.0 MG/DL Urine Leukocyte Esterase NEG Urine RBC LESS THAN 1 /hpf Urine WBC 2 /hpf Urine Squamous Epithelial Cells 2 /hpf Urine Mucus FEW /lpf Microscopic Urinalysis Comment CULT NOT INDICATED Urine Opiates Screen NEG Urine Barbiturates Screen NEG Urine Amphetamines Screen NEG Urine Benzodiazepines Screen NEG Urine Cocaine Screen POS Urine Cannabinoids Screen NEG MDM Medical Decision Making Medical Screen Exam Complete: Yes Emergency Medical Condition: Yes Differential Diagnosis pt has syncope of unknown origin neurocardiogenic vs cardiac cause vs hypotension of dehydration vs micturation syncope vs psychogenic syncope vs IHSS cardiac . other Narrative Course pt needs admission for further investigation of reason for syncope orthostatics had changes even after 1 ns liter and otherwise trop ekg and other labs were normal Diagnosis Primary Impression: Syncope Scripts Lisinopril (Lisinopril) 10 Mg Tab 10 MG PO DAILY for Blood Pressure Management, #30 TAB 0 Refills Prov: Raul Neal DO 06/02/17 Albuterol 8.5 GM Inh (Proair Hfa 8.5 GM Inh) 90 Mcg/Act Aer 2 PUFF INH Q4HR Y for SHORTNESS OF BREATH, #1 INHALER 0 Refills 108 mcg/actuation Prov: Raul Neal DO 06/02/17 Zane Elena MD Jun 01, 2017 07:04
[2017-06-01 07:38] LABS: AUTOMATED NEUTROPHIL # 5.2 TH/MM3 (1.8-7.7); BASOPHIL % 0.3 % (0.0-2.0); EOSINOPHIL # 0.1 TH/MM3 (0-0.4); HEMOGLOBIN 13.3 GM/DL (11.6-15.3); LYMPH % 20.1 % (9.0-44.0); LYMPHOCYTE # 1.5 TH/MM3 (1.0-4.8); MEAN CELL VOLUME 86.8 FL (80.0-100.0); MEAN CORPUSCULAR HEMOGLOBIN 29.5 PG (27.0-34.0); MEAN PLATELET VOLUME 7.5 FL (7.0-11.0); MONO % 7.3 % (0.0-8.0); MONOCYTE # 0.5 TH/MM3 (0-0.9); NEUT % 70.3 % (16.0-70.0); PLATELET COUNT 363 TH/MM3 (150-450); RED BLOOD COUNT 4.49 MIL/MM3 (4.00-5.30); RED CELL DISTRIBUTION WIDTH 13.3 % (11.6-17.2); WHITE BLOOD COUNT 7.4 TH/MM3 (4.0-11.0)
[2017-06-01 07:53] LABS: ALBUMIN 4.1 GM/DL (3.4-5.0); ALT (GPT) 15 U/L (10-53); AST (GOT) 17 U/L (15-37); BICARBONATE 26.1 MEQ/L (21.0-32.0); BLOOD UREA NITROGEN 8 MG/DL (7-18); CALCIUM 8.6 MG/DL (8.5-10.1); CHLORIDE 106 MEQ/L (98-107); CREATININE 0.75 MG/DL (0.50-1.00); GLOMERULAR FILTRATION RATE 90 ML/MIN (>89); GLUCOSE,RANDOM 105 MG/DL (74-106); SODIUM (NA) 139 MEQ/L (136-145)
[2017-06-01 07:57] LABS: ALKALINE PHOSPHATASE 49 U/L (45-117); TOTAL BILIRUBIN ADULT 0.3 MG/DL (0.2-1.0); TOTAL PROTEIN 9.3 GM/DL (6.4-8.2); TROPONIN I LESS THAN 0.02 NG/ML (0.02-0.05)
[2017-06-01] MEDS ORDERED: BISACODYL 10 MG SUPP RECTAL PRN (08:45)
[2017-06-01] MEDS ORDERED: NALOXONE HCL 0.4 MG/ML AMP IV PUSH PRN (08:45)
[2017-06-01] MEDS ORDERED: ACETAMINOPHEN 325 MG TAB PO PRN ×2 (08:45)
[2017-06-01] MEDS ORDERED: MAGNESIUM HYDROXIDE SUSP 30 ML CUP PO PRN (08:45)
[2017-06-01] MEDS ORDERED: SODIUM CHLORIDE 0.9% FLUSH 10 ML FLUSH IV FLUSH PRN ×2 (08:45)
[2017-06-01] MEDS ORDERED: MORPHINE SULFATE 2 MG/ML INJ IV PUSH PRN ×2 (08:45)
[2017-06-01] MEDS ORDERED: SENNOSIDES 8.6 MG TAB PO PRN (08:45)
[2017-06-01] MEDS ORDERED: METOCLOPRAMIDE HCL 10 MG/2 ML VIAL IV PUSH PRN (08:45)
[2017-06-01] MEDS ORDERED: ONDANSETRON HCL 4 MG/2 ML VIAL IVP PRN (08:45)
[2017-06-01] MEDS ORDERED: LACTULOSE SYRUP 20 GM/30 ML CUP PO PRN (08:45)
[2017-06-01] MEDS ORDERED: oxyCODONE/ACETAMINOPHEN 10 MG/325 MG TAB PO PRN (08:45)
[2017-06-01] MEDS ORDERED: oxyCODONE/ACETAMINOPHEN 5 MG/325 MG TAB PO PRN (08:45)
[2017-06-01] MEDS ORDERED: SODIUM CHLORIDE 0.9% FLUSH 10 ML FLUSH IV FLUSH SCH (09:00)
[2017-06-01] MEDS ORDERED: ALBUTEROL SULFATE 90 MCG/ACT HFA 8 GM INHALER INH PRN (09:00)
[2017-06-01] MEDS: DOCUSATE SODIUM 50 MG/SENNA 8.6 MG TAB PO SCH ×2 (09:00→21:20)
--- NOTE | 2017-06-01 09:10 | RADRPT ---
EXAM DATE/TIME: 06/01/2017 09:01 [facility] COMPARISON: No previous studies available for comparison. INDICATIONS : Multiple syncopal episodes for 3 days RADIATION DOSE: 56.35 CTDIvol (mGy) MEDICAL HISTORY : Hypertension. Diabetes mellitus type 2. SURGICAL HISTORY : None. ENCOUNTER: Initial ACUITY: 1 day PAIN SCALE: 0/10 LOCATION: cranial TECHNIQUE: Multiple contiguous axial images were obtained of the head. Using automated exposure control and adj ustment of the mA and/or kV according to patient size, radiation dose was kept as low as reasonably a chievable to obtain optimal diagnostic quality images. DICOM format image data is available electro nically for review and comparison. FINDINGS: CEREBRUM: The ventricles are normal for age. No evidence of midline shift, mass lesion, hemorrhage or acute in farction. No extra-axial fluid collections are seen. POSTERIOR FOSSA: The cerebellum and brainstem are intact. The 4th ventricle is midline. The cerebellopontine angle i s unremarkable. EXTRACRANIAL: The visualized portion of the orbits is intact. SKULL: The calvaria is intact. No evidence of skull fracture. CONCLUSION: Normal examination. Javid Whalen MD on June 01, 2017 at 9:09 Board Certified Radiologist. This report was verified electronically.
--- NOTE | 2017-06-01 09:29 | PD ---
Data Data Last Documented VS Vital Signs Date Time Temp Pulse Resp B/P (MAP) Pulse Ox O2 Delivery O2 Flow Rate FiO2 06/01/17 06:49 101 18 140/89 (106) 107 150/90 (110) 108 154/96 (115) 06/01/17 06:22 99 Room Air Orders Orders Electrocardiogram (06/01/17 06:35) Orthostatic Vital Signs (06/01/17 06:37) Meclizine (Antivert) (06/01/17 07:00) Complete Blood Count With Diff (06/01/17 06:59) Comprehensive Metabolic Panel (06/01/17 06:59) Troponin I (06/01/17 06:59) Lipase (06/01/17 06:59) Sodium Chlor 0.9% 1000 Ml Inj (Ns 1000 M (06/01/17 07:00) Urinalysis - C+S If Indicated (06/01/17 08:41) Drug Screen, Random Urine (06/01/17 08:41) Chest, Single Ap (06/01/17 08:42) Ct Brain W/O Iv Contrast(Rout) (06/01/17 08:42) Ed Urine Pregnancytest Poc (06/01/17 08:42) Admit Order (Ed Use Only) (06/01/17 ) Cloth Coverer / Telemetry LAUREN.Q8H (06/01/17 08:44) Vital Signs (Adult) Q4H (06/01/17 08:44) Diet Heart Healthy (06/01/17 Breakfast) Activity Bed Rest (06/01/17 08:44) Labs Laboratory Tests Test 06/01/17 07:26 06/01/17 08:17 White Blood Count 7.4 TH/MM3 Red Blood Count 4.49 MIL/MM3 Hemoglobin 13.3 GM/DL Hematocrit 39.0 % Mean Corpuscular Volume 86.8 FL Mean Corpuscular Hemoglobin 29.5 PG Mean Corpuscular Hemoglobin Concent 34.0 % Red Cell Distribution Width 13.3 % Platelet Count 363 TH/MM3 Mean Platelet Volume 7.5 FL Neutrophils (%) (Auto) 70.3 % Lymphocytes (%) (Auto) 20.1 % Monocytes (%) (Auto) 7.3 % Eosinophils (%) (Auto) 2.0 % Basophils (%) (Auto) 0.3 % Neutrophils # (Auto) 5.2 TH/MM3 Lymphocytes # (Auto) 1.5 TH/MM3 Monocytes # (Auto) 0.5 TH/MM3 Eosinophils # (Auto) 0.1 TH/MM3 Basophils # (Auto) 0.0 TH/MM3 CBC Comment DIFF FINAL Differential Comment Blood Urea Nitrogen 8 MG/DL Creatinine 0.75 MG/DL Random Glucose 105 MG/DL Total Protein 9.3 GM/DL Albumin 4.1 GM/DL Calcium Level 8.6 MG/DL Alkaline Phosphatase 49 U/L Aspartate Amino Transf (AST/SGOT) 17 U/L Alanine Aminotransferase (ALT/SGPT) 15 U/L Total Bilirubin 0.3 MG/DL Sodium Level 139 MEQ/L Potassium Level 3.7 MEQ/L Chloride Level 106 MEQ/L Carbon Dioxide Level 26.1 MEQ/L Anion Gap 7 MEQ/L Estimat Glomerular Filtration Rate 90 ML/MIN Troponin I LESS THAN 0.02 NG/ML Lipase 159 U/L Ethyl Alcohol Level LESS THAN 3 MG/DL MDM Medical Record Reviewed: Yes Supervised Visit with JOSE E: No Narrative Course EKG shows a normal sinus rhythm with a rate of 74 and no preexcitation morphology The CBC and BMP with LFTs and cardiac enzymes reveals no abnormality. Urinalysis and drug screen noted on per request a hospitalist along with chest x -ray and head CT. Syncope once daily for the last 3 days is of concern the patient will be admitted for ongoing monitoring and further evaluation prescription of admitting service. d/w Dr Neal Diagnosis Primary Impression: Syncope Qualified Codes: R55 - Syncope and collapse Admitting Information Admitting Physician Requests: Observation Maverick Florence MD Jun 01, 2017 09:29
[2017-06-01 09:35] LABS: BILIRUBIN, URINE NEG (NEG); BLOOD, URINE NEG (NEG); GLUCOSE,URINE NEG (NEG); KETONE, URINE NEG (NEG); MUCUS URINE FEW /lpf (OCC); NITRITE,URINE NEG (NEG); PH, URINE 6.5 (5.0-8.5); SQUAMOUS EPITHELIAL CELL URINE 2 /hpf (0-5); URINE COLOR LIGHT-YELLOW (YELLW/STRAW); URINE LEUKOCYTE ESTERASE NEG (NEG)
--- NOTE | 2017-06-01 09:38 | RADRPT ---
EXAM DATE/TIME: 06/01/2017 09:18 [facility] COMPARISON: No previous studies available for comparison. INDICATIONS : Syncope, short of breath for 3 days MEDICAL HISTORY : None. SURGICAL HISTORY : None. ENCOUNTER: Initial ACUITY: 3 days PAIN SCORE: 0/10 LOCATION: Bilateral chest FINDINGS: A single view of the chest demonstrates the lungs to be symmetrically aerated without evidence of mas s, infiltrate or effusion. The cardiomediastinal contours are unremarkable. Osseous structures are intact. CONCLUSION: No acute disease. Ariel Pitt MD on June 01, 2017 at 9:36 Board Certified Radiologist. This report was verified electronically.
--- NOTE | 2017-06-01 10:55 | EKG ---
Date Performed: 06/01/2017 Time Performed: 06:18:16 PTAGE: 32 years EKG: SINUS TACHYCARDIA NONSPECIFIC T-WAVE ABNORMALITY ABNORMAL RHYTHM ECG NO PREVIOUS TRACING DOCTOR: Adriana Rosa Interpretating Date/Time 06/01/2017 10:51:43
--- NOTE | 2017-06-01 11:15 | HHI.HP ---
[facility] Primary [facility]ician No Primary Care Physician Admission Diagnosis Syncope Diagnoses: (1) Tobacco abuse Diagnosis: Secondary (2) Cocaine use Diagnosis: Principal (3) Hypertension Diagnosis: Principal (4) Obese Diagnosis: Secondary (5) Migraine Diagnosis: Secondary (6) Syncope Diagnosis: Principal Chief Complaint: Syncope/near syncope Travel History International Travel<30 Days: No Contact w/Intl Traveler <30 Da: No Traveled to Known Affected Are: No History of Present Illness Patient is a 32-year-old female. Who for the last 3 days has had 3 syncopal episodes. The first 1 happened when she came out of the bathroom walking down the fish. Her boyfriend heard a thump and came sent and found her face down on the hallway floor she rapidly regained consciousness and did not have any seizure-like activity noted then yesterday it happened again in the bathroom after having urinated she stood up she states she fell backwards and hit her head in the bathroom sink but did not feel any lump or injury no loss of consciousness quickly regained her mentation again. Patient denies any history of seizures or syncope in the past sometimes has some vertigo-like symptoms then it happened again last night but denies any shortness of breath or chest pain patient has a history of this cholecystectomy as well as section as well as tubal ligation head trauma surgery to her knee on the right had a birthmark removed from her left neck and cheek Will be placed in observation for evaluation regarding syncope and will consult neurology and get EEGs echoes and carotid Dopplers So far the only thing positive is the cocaine in her urine Review of Systems Constitutional: DENIES: Diaphoretic episodes, Fatigue, Fever, Weight gain, Weight loss, Chills, Dizziness, Change in appetite, Night Sweats Endocrine: DENIES: Abnorml menstrual pattern, Heat/cold intolerance, Polydipsia Eyes: DENIES: Blurred vision, Diplopia, Eye inflammation, Eye pain, Vision loss , Photosensitivity Ears, nose, mouth, throat: COMPLAINS OF: Vertigo, DENIES: Tinnitus, Hearing loss, Nasal discharge, Oral lesions, Throat pain, Hoarseness, Ear Pain, Running Nose Respiratory: DENIES: Apneas, Cough, Snoring, Wheezing, Hemoptysis, Sputum production, Shortness of breath Cardiovascular: DENIES: Chest pain, Palpitations, Syncope, Dyspnea on Exertion , PND, Orthopnea Gastrointestinal: DENIES: Abdominal pain, Black stools, Bloody stools, Constipation, Diarrhea, Nausea, Vomiting Genitourinary: DENIES: Abnormal vaginal bleeding, Dysmenorrhea, Dyspareunia, Sexual dysfunction Musculoskeletal: DENIES: Joint pain, Muscle aches, Stiffness, Joint Swelling, Back pain, Neck pain Integumentary: DENIES: Abnormal pigmentation, Pruritus, Rash, Nail changes, Breast masses, Breast skin changes Hematologic/lymphatic: DENIES: Bruising, Lymphadenopathy Immunologic/allergic: DENIES: Eczema, Urticaria Neurologic: DENIES: Abnormal gait, Headache, Localized weakness, Paresthesias, Seizures, Speech Problems, Tremor, Poor Balance Psychiatric: DENIES: Anxiety, Confusion, Mood changes, Depression, Hallucinations, Agitation, Suicidal Ideation, Homicidal Ideation Except as stated in HPI: all other systems reviewed are Neg Past Family Social History Past Medical History Hypertension Borderline diabetes Headaches Migraines Asthma Obesity Past Surgical History section Cholecystectomy Plate under left eye surgery Birthmark removal from her neck Reported Medications Reported Meds & Active Scripts Active Proair Hfa 8.5 GM Inh (Albuterol Sulfate) 90 Mcg/Act Aer 2 Puff INH Q4HR PRN 108 mcg/actuation Reported Lisinopril 10 Mg Tab 10 Mg PO DAILY Allergies: Coded Allergies: Penicillins (Verified Allergy, Severe, RESPIRATORY DISTRESS, 02/19/17) amoxicillin (Verified Allergy, Severe, RESPIRATORY DISTRESS, 02/19/17) sumatriptan (Verified Allergy, Severe, RESPIRATORY DISTRESS, 02/19/17) latex (Verified Allergy, Mild, Rash, 02/19/17) Active Ordered Medications Current Medications Meclizine HCl (Antivert) 25 mg ONCE ONCE PO Last administered on 06/01/17at 07: 00; Start 06/01/17 at 07:00; Stop 06/01/17 at 07:01; Status DC Sodium Chloride 1,000 ml @ 999 mls/hr BOLUS ONCE IV Last administered on at 08:00; Start 06/01/17 at 07:00; Stop 3/1/18 at 08:00; Status DC Sodium Chloride 1,000 ml @ 100 mls/hr Q10H IV ; Start 06/01/17 at 08:41 Sodium Chloride (NS Flush) 2 ml UNSCH PRN IV FLUSH FLUSH AFTER USING IV ACCESS ; Start 06/01/17 at 08:45 Sodium Chloride (NS Flush) 2 ml BID IV FLUSH ; Start 06/01/17 at 09:00 Acetaminophen (Tylenol) 650 mg Q4H PRN PO TEMP > 100.4; Start 06/01/17 at 08:45 Ondansetron HCl (Zofran Inj) 4 mg Q6H PRN IVP NAUSEA OR VOMITING; Start at 08:45 Metoclopramide HCl (Reglan Inj) 5 mg Q6H PRN IV PUSH NAUSEA OR VOMITING; Start 06/01/17 at 08:45 Acetaminophen (Tylenol) 650 mg Q6H PRN PO PAIN SCALE 1 TO 2; Start 06/01/17 at 08:45 Oxycodone/ Acetaminophen (Percocet 5-325 Mg) 1 tab Q6H PRN PO PAIN SCALE 3 TO 5; Start 06/01/17 at 08:45 Oxycodone/ Acetaminophen (Percocet 10-325 Mg) 1 tab Q6H PRN PO PAIN SCALE 6 TO 10; Start 06/01/17 at 08:45 Morphine Sulfate (Morphine Inj) 2 mg Q3H PRN IV PUSH Pain 3-5; if unable to take PO; Start 06/01/17 at 08:45 Morphine Sulfate (Morphine Inj) 4 mg Q3H PRN IV PUSH Pain 6-10;if unable to take PO; Start 06/01/17 at 08:45 Naloxone HCl (Narcan Inj) 0.4 mg UNSCH PRN IV PUSH SEE LABEL COMMENTS; Start at 08:45 Senna/Docusate Sodium (Sandee-Colace) 1 tab BID PO ; Start 06/01/17 at 09:00 Magnesium Hydroxide (Milk Of Magnesia Liq) 30 ml Q12H PRN PO Mild constipation ; Start 06/01/17 at 08:45 Sennosides (Senokot) 17.2 mg Q12H PRN PO Moderate constipation; Start 06/01/17 at 08:45 Bisacodyl (Dulcolax Supp) 10 mg DAILY PRN RECTAL SEVERE CONSITIPATION; Start at 08:45 Lactulose (Lactulose Liq) 30 ml DAILY PRN PO SEVERE CONSITIPATION; Start at 08:45 Sodium Chloride (NS Flush) 2 ml UNSCH PRN IV FLUSH FLUSH AFTER USING IV ACCESS ; Start 06/01/17 at 08:45; Stop 06/01/17 at 09:14; Status DC Sodium Chloride (NS Flush) 2 ml BID IV FLUSH ; Start 06/01/17 at 09:00; Stop 06/01 at 09:14; Status DC Albuterol Sulfate (Proair Hfa Inh) 2 puff Q4HR PRN INH SHORTNESS OF BREATH; Start 06/01/17 at 09:00 Lisinopril (Prinivil) 10 mg DAILY PO ; Start 06/01/17 at 09:00 Family History Probably some hypertension in the family Social History Smokes tobacco and marijuana Urine drug screen is positive for cocaine Was drinking alcohol last night Physical Exam Vital Signs Vital Signs Date Time Temp Pulse Resp B/P (MAP) Pulse Ox O2 Delivery O2 Flow Rate FiO2 06/01/17 09:56 06/01/17 06:49 101 18 140/89 (106) 107 150/90 (110) 108 154/96 (115) 06/01/17 06:22 99 Room Air 06/01/17 06:22 108 18 150/96 (114) 99 Room Air 06/01/17 06:13 96 17 140/89 (106) 99 Physical Exam GENERAL: This is a well-nourished, well-developed patient, in no apparent distress. SKIN: No rashes, ecchymoses or lesions. Cool and dry. HEAD: Atraumatic. Normocephalic. No temporal or scalp tenderness. EYES: Pupils equal round and reactive. Extraocular motions intact. No scleral icterus. No injection or drainage. ENT: Nose without bleeding, purulent drainage or septal hematoma. Throat without erythema, tonsillar hypertrophy or exudate. Uvula midline. Airway patent. Tongue is midline NECK: Trachea midline. No JVD or lymphadenopathy. Supple, nontender, no meningeal signs. CARDIOVASCULAR: Regular rate and rhythm without murmurs, gallops, or rubs. S1- S2 no S3 or S4 RESPIRATORY: Clear to auscultation. Breath sounds equal bilaterally. No wheezes , rales, or rhonchi. GASTROINTESTINAL: Abdomen soft, non-tender, nondistended. No hepato-splenomegaly , or palpable masses. No guarding. Obese MUSCULOSKELETAL: Extremities without clubbing, cyanosis, or edema. No joint tenderness, effusion, or edema noted. No calf tenderness. Negative Homans sign bilaterally. NEUROLOGICAL: Awake and alert. Cranial nerves II through XII intact. Motor and sensory grossly within normal limits. Five out of 5 muscle strength in all muscle groups. Normal speech. Insight and judgment is good Mood and behavior is appropriate Laboratory Laboratory Tests Test 06/01/17 07:26 06/01/17 07:27 06/01/17 08:17 White Blood Count 7.4 Red Blood Count 4.49 Hemoglobin 13.3 Hematocrit 39.0 Mean Corpuscular Volume 86.8 Mean Corpuscular Hemoglobin 29.5 Mean Corpuscular Hemoglobin Concent 34.0 Red Cell Distribution Width 13.3 Platelet Count 363 Mean Platelet Volume 7.5 Neutrophils (%) (Auto) 70.3 Lymphocytes (%) (Auto) 20.1 Monocytes (%) (Auto) 7.3 Eosinophils (%) (Auto) 2.0 Basophils (%) (Auto) 0.3 Neutrophils # (Auto) 5.2 Lymphocytes # (Auto) 1.5 Monocytes # (Auto) 0.5 Eosinophils # (Auto) 0.1 Basophils # (Auto) 0.0 CBC Comment DIFF FINAL Differential Comment Blood Urea Nitrogen 8 Creatinine 0.75 Random Glucose 105 Total Protein 9.3 Albumin 4.1 Calcium Level 8.6 Alkaline Phosphatase 49 Aspartate Amino Transf (AST/SGOT) 17 Alanine Aminotransferase (ALT/SGPT) 15 Total Bilirubin 0.3 Sodium Level 139 Potassium Level 3.7 Chloride Level 106 Carbon Dioxide Level 26.1 Anion Gap 7 Estimat Glomerular Filtration Rate 90 Troponin I LESS THAN 0.02 Lipase 159 Ethyl Alcohol Level LESS THAN 3 Beta HCG, Qualitative LESS THAN 1 Urine Color LIGHT-YELLOW Urine Turbidity CLEAR Urine pH 6.5 Urine Specific Driscoll 1.009 Urine Protein NEG Urine Glucose (UA) NEG Urine Ketones NEG Urine Occult Blood NEG Urine Nitrite NEG Urine Bilirubin NEG Urine Urobilinogen LESS THAN 2.0 Urine Leukocyte Esterase NEG Urine RBC LESS THAN 1 Urine WBC 2 Urine Squamous Epithelial Cells 2 Urine Mucus FEW Microscopic Urinalysis Comment CULT NOT INDICATED Urine Opiates Screen NEG Urine Barbiturates Screen NEG Urine Amphetamines Screen NEG Urine Benzodiazepines Screen NEG Urine Cocaine Screen POS Urine Cannabinoids Screen NEG Result Diagram: 06/01/17 0726 06/01/17725 Imaging Last Impressions Head CT 06/01/17841 Signed Impressions: Service Date/Time: June 09:01 - CONCLUSION: Normal examination. Javid Whalen MD Chest X-Ray 06/01/17841 Signed Impressions: Service Date/Time: June 09:18 - CONCLUSION: No acute disease. MD Sara Fraire VTE Risk Assessment Caprini VTE Risk Assessment: No/Low Risk (score <= 1) Caprini Risk Assessment Model Point Value = 1 Point Value = 2 Point Value = 3 Point Value = 5 Age 41-60 Minor surgery BMI > 25 kg/m2 Swollen legs Varicose veins or History of unexplained or recurrent spontaneous Oral contraceptives or hormone replacement Sepsis (< 1 month) Serious lung disease, including pneumonia (< 1 month) Abnormal pulmonary function Acute myocardial infarction Congestive heart failure (< 1 month) History of inflammatory bowel disease Medical patient at bed rest Age 61-74 Arthroscopic surgery Major open surgery (> 45 min) Laparoscopic surgery (> 45 min) Malignancy Confined to bed (> 72 hours) Immobilizing plaster cast Central venous access Age >= 75 History of VTE Family history of VTE Factor V Leiden Prothrombin [id number] Lupus anticoagulant Anticardiolipin antibodies Elevated serum homocysteine Heparin-induced thrombocytopenia Other congenital or acquired thrombophilia Stroke (< 1 month) Elective arthroplasty Hip, pelvis, or leg fracture Acute spinal cord injury (< 1 month) Prophylaxis Regimen Total Risk Factor Score Risk Level Prophylaxis Regimen 0-1 Low Early ambulation 2 Moderate Order ONE of the following: *Sequential Compression Device (SCD) *Heparin 5000 units SQ BID 3-4 Higher Order ONE of the following medications: *Heparin 5000 units SQ TID *Enoxaparin/Lovenox 40 mg SQ daily (WT < 150 kg, CrCl > 30 mL/min) *Enoxaparin/Lovenox 30 mg SQ daily (WT < 150 kg, CrCl > 10-29 mL/min) *Enoxaparin/Lovenox 30 mg SQ BID (WT < 150 kg, CrCl > 30 mL/min) AND/OR *Sequential Compression Device (SCD) 5 or more Highest Order ONE of the following medications: *Heparin 5000 units SQ TID (Preferred with Epidurals) *Enoxaparin/Lovenox 40 mg SQ daily (WT < 150 kg, CrCl > 30 mL/min) *Enoxaparin/Lovenox 30 mg SQ daily (WT < 150 kg, CrCl > 10-29 mL/min) *Enoxaparin/Lovenox 30 mg SQ BID (WT < 150 kg, CrCl > 30 mL/min) AND *Sequential Compression Device (SCD) Assessment and Plan Assessment and Plan Syncopal episodes multiple possible due to poor sleep hygiene and/or cocaine -We will get ultrasounds of the carotids and echocardiogram as well as an EEG and neurology will be consulted -CAT scan of the head is negative so far -chest x-ray is negative Hypertension resume her CIARRA inhibitor Obesity recommend weight loss Marijuana use recommend cessation Tobacco abuse recommend cessation Cocaine use with positive urine drug screen recommend cessation Continue on DVT prophylaxis with SCDs GI prophylaxis not needed Code Status Full code Discussed Condition With RN and patient an ER physician Problem Qualifiers (1) Syncope: Qualified Codes: R55 - Syncope and collapse Raul Neal DO Jun 01, 2017 11:15
--- NOTE | 2017-06-01 12:32 | RADRPT ---
EXAM DATE/TIME: 06/01/2017 11:10 [place] COMPARISON: No previous studies available for comparison. INDICATIONS : Syncope. MEDICAL HISTORY : Migraines. Hypertension. Asthma. Diabetes. SURGICAL HISTORY : Cholecystectomy. section. Tubal ligation. Eye surgery. Left ankle surgery with hardware. Rig ht knee surgery. ENCOUNTER: Initial ACUITY: 1 day PAIN SCORE: 0/10 LOCATION: Bilateral neck PEAK SYSTOLIC VELOCITIES (cm/sec): ICA/CCA RATIO: Right: 0.7 Left: 0.8 ICA: Right: 98 Left: 116 CCA: Right: 71 Left: 94 ECA: Right: 97 Left: 98 VERTEBRAL: Right: 57 antegrade Left: 49 antegrade Elevated flow velocities and ICA/CCA ratios have been found to correlate with increased degrees of vessel stenosis, calculated as percentage of diameter relative to a normal segment of distal ICA/CCA FINDINGS: RIGHT CAROTID: No significant stenosis is visualized. The waveforms are within normal limits. LEFT CAROTID: No significant stenosis is visualized. The waveforms are within normal limits. VERTEBRAL ARTERIES: Antegrade flow is seen in both vertebral arteries. MISCELLANEOUS: None. CONCLUSION: Normal examination. Brian Alvarado MD on June 01, 2017 at 12:30 Board Certified Radiologist. This report was verified electronically.
[2017-06-01] MEDS: LISINOPRIL 10 MG TAB PO SCH (12:55)
[2017-06-01] MEDS: SODIUM CHLORIDE 0.9% FLUSH 10 ML FLUSH IV FLUSH SCH ×2 (12:56→21:00)
[2017-06-01] MEDS: SODIUM CHLOR 0.9% 1000 ML INJ 1,000 ML IV SCH ×2 (13:17→18:41)
--- NOTE | 2017-06-01 14:55 | MG ---
cc: Pamela Howard MD EEG#: [id number] REFERRING PHYSICIAN: Raul Neal DO ROOM: F Awake, drowsy, asleep. Hyperventilation, good effort. Photic stimulation. CT normal. A 32-year-old admitted with syncope, stands up and passes out, then regains consciousness quickly. UDS positive for cocaine. On ProAir, lisinopril, Antivert. DESCRIPTION OF RECORD: She has an alpha rhythm of 10 Hz, 20-60 uV. Symmetrical background. EKG looks sinus. Photic stimulation reveals a driving response. The hvac field service technician is asking the patient to stay awake. Coughing. Hyperventilation was done. There is some movement artifact. Noted she was snoring. IMPRESSION: Overall normal appearing electroencephalogram. Some snoring events which cause more artifact, but no true epileptic activity noted. Clinical correlation. Pamela Howard MD DF/TI , 02:45 PM , 02:54 PM
--- NOTE | 2017-06-01 17:51 | ECHRPT ---
Indication: CVA/TIA CONCLUSIONS Normal left ventricular size. Mild concentric left ventricular hypertrophy. The left ventricular systolic function is low normal with an estimated ejection fraction in the rang e of 50- 55%. The left atrial size is [id number] dilated. The right atrial size is yxmc-sp-umruizkfbr dilated. No atrial level shunt is demonstrated by color flow Doppler interrogation. Cqskt-bs-yqvw mitral valve regurgitation. There is mild tricuspid valve regurgitation. The estimated pulmonary arterial pressure is 37.7 mmHg. BP: 140 / 89 HR: 101 Rhythm: Sinus MEASUREMENTS (Male / Female) Normal Values Technical Quality:Fair 2D ECHO LV Diastolic Diameter PLAX 4.6 cm 4.2 - 5.9 / 3.9 - 5.3 cm LV Systolic Diameter PLAX 3.6 cm IVS Diastolic Thickness 1.1 cm 0.6 - 1.0 / 0.6 - 0.9 cm LVPW Diastolic Thickness 1.1 cm 0.6 - 1.0 / 0.6 - 0.9 cm LV Relative Wall Thickness 0.5 RV Internal Dim ED PLAX 3.0 cm LVOT Diameter 1.8 cm Aortic Root Diameter 2.6 cm LA Systolic Diameter LX 3.6 cm 3.0 - 4.0 / 2.7 - 3.8 cm DOPPLER AV Peak Velocity 135.0 cm/s AV Peak Gradient 7.3 mmHg AV Mean Gradient 4.0 mmHg AV Velocity Time Integral 27.0 cm LVOT Peak Velocity 115.0 cm/s LVOT Peak Gradient 5.3 mmHg LVOT Velocity Time Integral 18.6 cm AV Area Cont Eq vti 1.8 cm AV Area Cont Eq pk 2.2 cm Mitral E Point Velocity 80.0 cm/s Mitral A Point Velocity 42.0 cm/s Mitral E to A Ratio 1.9 LV E' Lateral Velocity 15.5 cm/s Mitral E to LV E' Lateral Ratio 5.2 LV E' Septal Velocity 11.0 cm/s Mitral E to LV E' Septal Ratio 7.3 TR Peak Velocity 263.0 cm/s TR Peak Gradient 28.0 mmHg Right Atrial Pressure 10.0 mmHg Pulmonary Artery Systolic Pressu 37.7 mmHg Right Ventricular Systolic Press 37.7 mmHg PV Peak Velocity 85.0 cm/s PV Peak Gradient 2.9 mmHg FINDINGS LEFT VENTRICLE Normal left ventricular size. Mild concentric left ventricular hypertrophy. The left ventricular systolic function is low normal with an estimated ejection fraction in the rang e of 50- 55%. RIGHT VENTRICLE Normal right ventricular size and systolic function. LEFT ATRIUM The left atrial size is vxki-la-uylkunbsvs dilated. RIGHT ATRIUM The right atrial size is mrvo-dm-pioqchzlaj dilated. ATRIAL SEPTUM No atrial level shunt is demonstrated by color flow Doppler interrogation. AORTA The aortic root and proximal ascending aorta are not well visualized. MITRAL VALVE Ydkpt-uv-xmws mitral valve regurgitation. AORTIC VALVE Trileaflet aortic valve. No aortic valve stenosis or regurgitation. TRICUSPID VALVE There is mild tricuspid valve regurgitation. The estimated pulmonary arterial pressure is 37.7 mmHg. PULMONARY VALVE No pulmonary valve regurgitation or stenosis. VESSELS The inferior vena cava was not well visualized. PERICARDIUM No pericardial effusion. Jonas Lewis MD, FACC, FSCAI (Electronically Signed) Final Date:01 June 2017 17:50
[2017-06-02] VITALS: PULSE 56
[2017-06-02 01:50] LABS: TROPONIN I LESS THAN 0.02 NG/ML (0.02-0.05)
[2017-06-02 04:00] VITALS: PULSE 51
[2017-06-02 04:14] VITALS: BP 126/74; PULSE 56; RESP 16; TEMP 97.8; O2SAT 98
[2017-06-02] MEDS: SODIUM CHLOR 0.9% 1000 ML INJ 1,000 ML IV SCH (05:03)
[2017-06-02 07:45] LABS: AUTOMATED NEUTROPHIL # 4.1 TH/MM3 (1.8-7.7); BASOPHIL % 0.3 % (0.0-2.0); EOSINOPHIL # 0.3 TH/MM3 (0-0.4); EOSINOPHIL % 3.9 % (0.0-4.0); HEMATOCRIT 34.1 % (35.0-46.0); HEMOGLOBIN 11.5 GM/DL (11.6-15.3); LYMPHOCYTE # 2.3 TH/MM3 (1.0-4.8); MEAN CELL VOLUME 87.7 FL (80.0-100.0); MEAN CORPUSCULAR HEMOGLOBIN 29.6 PG (27.0-34.0); MEAN CORPUSCULAR HGB CONC 33.7 % (32.0-36.0); MEAN PLATELET VOLUME 7.8 FL (7.0-11.0); MONO % 7.2 % (0.0-8.0); MONOCYTE # 0.5 TH/MM3 (0-0.9); NEUT % 56.6 % (16.0-70.0); PLATELET COUNT 285 TH/MM3 (150-450); RED BLOOD COUNT 3.88 MIL/MM3 (4.00-5.30); WHITE BLOOD COUNT 7.2 TH/MM3 (4.0-11.0)
[2017-06-02 07:47] LABS: PROTHROMBIN TIME - PATIENT 10.5 SEC (9.8-11.6)
[2017-06-02 08:00] VITALS: BP_SYST 104; BP_SYST 105; BP_SYST 112; BP_DIAS 63; BP_DIAS 66; BP_DIAS 71; PULSE 60; RESP 16; TEMP 98.4; O2SAT 97
[2017-06-02 08:09] VITALS: PULSE 55
[2017-06-02 08:13] LABS: ALBUMIN 2.9 GM/DL (3.4-5.0); ALKALINE PHOSPHATASE 40 U/L (45-117); ALT (GPT) 12 U/L (10-53); AST (GOT) 9 U/L (15-37); BICARBONATE 21.6 MEQ/L (21.0-32.0); BLOOD UREA NITROGEN 10 MG/DL (7-18); CALCIUM 8.1 MG/DL (8.5-10.1); CHLORIDE 107 MEQ/L (98-107); CREATININE 0.66 MG/DL (0.50-1.00); GLOMERULAR FILTRATION RATE 104 ML/MIN (>89); GLUCOSE,RANDOM 87 MG/DL (74-106); SODIUM (NA) 138 MEQ/L (136-145); TOTAL BILIRUBIN ADULT 0.5 MG/DL (0.2-1.0); TOTAL PROTEIN 6.7 GM/DL (6.4-8.2)
[2017-06-02] MEDS: LISINOPRIL 10 MG TAB PO SCH (08:54)
[2017-06-02] MEDS: SODIUM CHLORIDE 0.9% FLUSH 10 ML FLUSH IV FLUSH SCH (08:54)
[2017-06-02] MEDS: DOCUSATE SODIUM 50 MG/SENNA 8.6 MG TAB PO SCH (08:54)
--- NOTE | 2017-06-02 10:41 | HHI.PR ---
Subjective Remarks Patient is a 32-year-old female. Who for the last 3 days has had 3 syncopal episodes. The first 1 happened when she came out of the bathroom walking down the fish. Her boyfriend heard a thump and came sent and found her face down on the hallway floor she rapidly regained consciousness and did not have any seizure-like activity noted then yesterday it happened again in the bathroom after having urinated she stood up she states she fell backwards and hit her head in the bathroom sink but did not feel any lump or injury no loss of consciousness quickly regained her mentation again. Patient denies any history of seizures or syncope in the past sometimes has some vertigo-like symptoms then it happened again last night but denies any shortness of breath or chest pain patient has a history of this cholecystectomy as well as section as well as tubal ligation head trauma surgery to her knee on the right had a birthmark removed from her left neck and cheek Will be placed in observation for evaluation regarding syncope and will not consult neurology and get EEGs echoes and carotid Dopplers So far the only thing positive is the cocaine in her urine 3-2 all studies have been negative. EEG is negative CAT scan of the brain is negative Carotid ultrasounds are negative Physical therapy and occupational therapy have cleared her completely He will be discharged home We will need a note to return to work We will discharge to home today Recommend smoking cessation Recommend alcohol cessation Recommend marijuana cessation Recommend cocaine cessation Objective Vitals Vital Signs Date Time Temp Pulse Resp B/P (MAP) Pulse Ox O2 Delivery O2 Flow Rate FiO2 06/02/17 08:09 55 06/02/17 08:00 98.4 60 16 104/63 (77) 97 105/66 (79) 112/71 (85) 06/02/17 04:14 97.8 56 16 126/74 (91) 98 06/02/17 04:00 51 06/02/17 00:00 56 06/01/17 23:17 98.3 56 16 109/65 (80) 97 Automatic Cuff 06/01/17 20:49 60 06/01/17 19:48 97.7 57 16 119/75 (90) 97 129/86 (100) 06/01/17 19:05 97 06/01/17 16:18 62 06/01/17 15:35 97.9 83 20 122/85 (97) 98 06/01/17 13:45 98.2 57 20 121/70 (87) 98 06/01/17 11:00 62 I/O 06/01/17 06/01/17 06/01/17 06/02/17 06/02/17 06/02/17 07:00 15:00 23:00 07:00 15:00 23:00 Intake Total 1000 ml Balance 1000 ml Intake IV Total 1000 ml # Voids 1 Result Diagram: 06/02/17 0630 06/02/17 0630 Other Results Laboratory Tests Test 06/01/17 07:26 06/01/17 07:27 06/01/17 08:17 06/01/17 13:57 White Blood Count 7.4 TH/MM3 Red Blood Count 4.49 MIL/MM3 Hemoglobin 13.3 GM/DL Hematocrit 39.0 % Mean Corpuscular Volume 86.8 FL Mean Corpuscular Hemoglobin 29.5 PG Mean Corpuscular Hemoglobin Concent 34.0 % Red Cell Distribution Width 13.3 % Platelet Count 363 TH/MM3 Mean Platelet Volume 7.5 FL Neutrophils (%) (Auto) 70.3 % Lymphocytes (%) (Auto) 20.1 % Monocytes (%) (Auto) 7.3 % Eosinophils (%) (Auto) 2.0 % Basophils (%) (Auto) 0.3 % Neutrophils # (Auto) 5.2 TH/MM3 Lymphocytes # (Auto) 1.5 TH/MM3 Monocytes # (Auto) 0.5 TH/MM3 Eosinophils # (Auto) 0.1 TH/MM3 Basophils # (Auto) 0.0 TH/MM3 CBC Comment DIFF FINAL Differential Comment Blood Urea Nitrogen 8 MG/DL Creatinine 0.75 MG/DL Random Glucose 105 MG/DL Total Protein 9.3 GM/DL Albumin 4.1 GM/DL Calcium Level 8.6 MG/DL Alkaline Phosphatase 49 U/L Aspartate Amino Transf (AST/SGOT) 17 U/L Alanine Aminotransferase (ALT/SGPT) 15 U/L Total Bilirubin 0.3 MG/DL Sodium Level 139 MEQ/L Potassium Level 3.7 MEQ/L Chloride Level 106 MEQ/L Carbon Dioxide Level 26.1 MEQ/L Anion Gap 7 MEQ/L Estimat Glomerular Filtration Rate 90 ML/MIN Troponin I LESS THAN 0.02 NG/ML LESS THAN 0.02 NG/ML Lipase 159 U/L Ethyl Alcohol Level LESS THAN 3 MG/DL Beta HCG, Qualitative LESS THAN 1 MIU/ML Urine Color LIGHT-YELLOW Urine Turbidity CLEAR Urine pH 6.5 Urine Specific Bolt 1.009 Urine Protein NEG mg/dL Urine Glucose (UA) NEG mg/dL Urine Ketones NEG mg/dL Urine Occult Blood NEG Urine Nitrite NEG Urine Bilirubin NEG Urine Urobilinogen LESS THAN 2.0 MG/DL Urine Leukocyte Esterase NEG Urine RBC LESS THAN 1 /hpf Urine WBC 2 /hpf Urine Squamous Epithelial Cells 2 /hpf Urine Mucus FEW /lpf Microscopic Urinalysis Comment CULT NOT INDICATED Urine Opiates Screen NEG Urine Barbiturates Screen NEG Urine Amphetamines Screen NEG Urine Benzodiazepines Screen NEG Urine Cocaine Screen POS Urine Cannabinoids Screen NEG Total Creatine Kinase 52 U/L Test 06/02/17 06:30 White Blood Count 7.2 TH/MM3 Red Blood Count 3.88 MIL/MM3 Hemoglobin 11.5 GM/DL Hematocrit 34.1 % Mean Corpuscular Volume 87.7 FL Mean Corpuscular Hemoglobin 29.6 PG Mean Corpuscular Hemoglobin Concent 33.7 % Red Cell Distribution Width 13.0 % Platelet Count 285 TH/MM3 Mean Platelet Volume 7.8 FL Neutrophils (%) (Auto) 56.6 % Lymphocytes (%) (Auto) 32.0 % Monocytes (%) (Auto) 7.2 % Eosinophils (%) (Auto) 3.9 % Basophils (%) (Auto) 0.3 % Neutrophils # (Auto) 4.1 TH/MM3 Lymphocytes # (Auto) 2.3 TH/MM3 Monocytes # (Auto) 0.5 TH/MM3 Eosinophils # (Auto) 0.3 TH/MM3 Basophils # (Auto) 0.0 TH/MM3 CBC Comment DIFF FINAL Differential Comment Prothrombin Time 10.5 SEC Prothromb Time International Ratio 1.0 RATIO Blood Urea Nitrogen 10 MG/DL Creatinine 0.66 MG/DL Random Glucose 87 MG/DL Total Protein 6.7 GM/DL Albumin 2.9 GM/DL Calcium Level 8.1 MG/DL Alkaline Phosphatase 40 U/L Aspartate Amino Transf (AST/SGOT) 9 U/L Alanine Aminotransferase (ALT/SGPT) 12 U/L Total Bilirubin 0.5 MG/DL Sodium Level 138 MEQ/L Potassium Level 3.5 MEQ/L Chloride Level 107 MEQ/L Carbon Dioxide Level 21.6 MEQ/L Anion Gap 9 MEQ/L Estimat Glomerular Filtration Rate 104 ML/MIN Imaging Last Impressions Head CT 06/01/1742 Signed Impressions: Service Date/Time: June 09:01 - CONCLUSION: Normal examination. Javid Whalen MD Chest X-Ray 06/01/17 0842 Signed Impressions: Service Date/Time: June 09:18 - CONCLUSION: No acute disease. Ariel Pitt MD Carotid Artery Ultrasound 06/01/17 0000 Signed Impressions: Service Date/Time: June 11:10 - CONCLUSION: Normal examination. Brian Alvarado MD Objective Remarks GENERAL: This is a well-nourished, well-developed patient, in no apparent distress. SKIN: No rashes, ecchymoses or lesions. Cool and dry. HEAD: Atraumatic. Normocephalic. No temporal or scalp tenderness. EYES: Pupils equal round and reactive. Extraocular motions intact. No scleral icterus. No injection or drainage. ENT: Nose without bleeding, purulent drainage or septal hematoma. Throat without erythema, tonsillar hypertrophy or exudate. Uvula midline. Airway patent. Tongue is midline NECK: Trachea midline. No JVD or lymphadenopathy. Supple, nontender, no meningeal signs. CARDIOVASCULAR: Regular rate and rhythm without murmurs, gallops, or rubs. S1- S2 no S3 or S4 RESPIRATORY: Clear to auscultation. Breath sounds equal bilaterally. No wheezes , rales, or rhonchi. GASTROINTESTINAL: Abdomen soft, non-tender, nondistended. No hepato-splenomegaly , or palpable masses. No guarding. Obese MUSCULOSKELETAL: Extremities without clubbing, cyanosis, or edema. No joint tenderness, effusion, or edema noted. No calf tenderness. Negative Homans sign bilaterally. NEUROLOGICAL: Awake and alert. Cranial nerves II through XII intact. Motor and sensory grossly within normal limits. Five out of 5 muscle strength in all muscle groups. Normal speech. Insight and judgment is good Mood and behavior is appropriate Procedures EEG negative Medications and IVs Current Medications Meclizine HCl (Antivert) 25 mg ONCE ONCE PO Last administered on 06/01/17at 07: 00; Start 06/01/17 at 07:00; Stop 06/01/17 at 07:01; Status DC Sodium Chloride 1,000 ml @ 999 mls/hr BOLUS ONCE IV Last administered on at 08:00; Start 06/01/17 at 07:00; Stop 06/01/17 at 08:00; Status DC Sodium Chloride 1,000 ml @ 100 mls/hr Q10H IV Last administered on 06/02/17at 05 :03; Start 06/01/17 at 08:41 Sodium Chloride (NS Flush) 2 ml UNSCH PRN IV FLUSH FLUSH AFTER USING IV ACCESS ; Start 06/01/17 at 08:45 Sodium Chloride (NS Flush) 2 ml BID IV FLUSH Last administered on 06/01/17at 12: 56; Start 06/01/17 at 09:00 Acetaminophen (Tylenol) 650 mg Q4H PRN PO TEMP > 100.4; Start 06/01/17 at 08:45 Ondansetron HCl (Zofran Inj) 4 mg Q6H PRN IVP NAUSEA OR VOMITING; Start at 08:45 Metoclopramide HCl (Reglan Inj) 5 mg Q6H PRN IV PUSH NAUSEA OR VOMITING; Start 06/01/17 at 08:45 Acetaminophen (Tylenol) 650 mg Q6H PRN PO PAIN SCALE 1 TO 2; Start 06/01/17 at 08:45 Oxycodone/ Acetaminophen (Percocet 5-325 Mg) 1 tab Q6H PRN PO PAIN SCALE 3 TO 5; Start 06/01/17 at 08:45 Oxycodone/ Acetaminophen (Percocet 10-325 Mg) 1 tab Q6H PRN PO PAIN SCALE 6 TO 10; Start 06/01/17 at 08:45 Morphine Sulfate (Morphine Inj) 2 mg Q3H PRN IV PUSH Pain 3-5; if unable to take PO; Start 06/01/17 at 08:45 Morphine Sulfate (Morphine Inj) 4 mg Q3H PRN IV PUSH Pain 6-10;if unable to take PO; Start 06/01/17 at 08:45 Naloxone HCl (Narcan Inj) 0.4 mg UNSCH PRN IV PUSH SEE LABEL COMMENTS; Start at 08:45 Senna/Docusate Sodium (Sandee-Colace) 1 tab BID PO Last administered on 3/1/18at 21:20; Start 06/01/17 at 09:00 Magnesium Hydroxide (Milk Of Magnesia Liq) 30 ml Q12H PRN PO Mild constipation ; Start 06/01/17 at 08:45 Sennosides (Senokot) 17.2 mg Q12H PRN PO Moderate constipation; Start 06/01/17 at 08:45 Bisacodyl (Dulcolax Supp) 10 mg DAILY PRN RECTAL SEVERE CONSITIPATION; Start at 08:45 Lactulose (Lactulose Liq) 30 ml DAILY PRN PO SEVERE CONSITIPATION; Start at 08:45 Sodium Chloride (NS Flush) 2 ml UNSCH PRN IV FLUSH FLUSH AFTER USING IV ACCESS ; Start 06/01/17 at 08:45; Stop 06/01/17 at 09:14; Status DC Sodium Chloride (NS Flush) 2 ml BID IV FLUSH ; Start 06/01/17 at 09:00; Stop 06/01 at 09:14; Status DC Albuterol Sulfate (Proair Hfa Inh) 2 puff Q4HR PRN INH SHORTNESS OF BREATH; Start 06/01/17 at 09:00 Lisinopril (Prinivil) 10 mg DAILY PO Last administered on 06/01/17at 12:55; Start 06/01/17 at 09:00 A/P Problem List: (1) Tobacco abuse ICD Code: Z72.0 - Tobacco use (2) Cocaine use ICD Code: F14.90 - Cocaine use, unspecified, uncomplicated (3) Hypertension ICD Code: I10 - Essential (primary) hypertension (4) Obese ICD Code: E66.9 - Obesity, unspecified (5) Migraine ICD Code: G43.909 - Migraine, unspecified, not intractable, without status migrainosus (6) Syncope ICD Code: R55 - Syncope and collapse Status: Acute Assessment and Plan Syncopal episodes multiple possible due to poor sleep hygiene and/or cocaine -We will get ultrasounds of the carotids and echocardiogram as well as an EEG and neurology will be consulted -CAT scan of the head is negative so far -chest x-ray is negative Hypertension resume her CIARRA inhibitor Obesity recommend weight loss Marijuana use recommend cessation Tobacco abuse recommend cessation Cocaine use with positive urine drug screen recommend cessation Continue on DVT prophylaxis with SCDs GI prophylaxis not needed Code Status Full code Can be discharged to home Discharge Planning Discharge to home today Stop cocaine. Stop marijuana stop tobacco. Stop illicit. Stop alcohol Problem Qualifiers (1) Syncope: Qualified Codes: R55 - Syncope and collapse Raul Neal DO Jun 02, 2017 10:41
[2017-06-02] MEDS ORDERED: LISI10TA3 PO (10:43)
[2017-06-02] MEDS ORDERED: ALBUAER3 INH (10:43)
--- NOTE | 2017-06-02 10:44 | HHI.DS ---
Discharge Summary Admission Date Jun 01, 2017 at 08:46 Discharge Date: Jun 02, 2017 Admitting Diagnosis Syncope (1) Tobacco abuse ICD Code: Z72.0 - Tobacco use Diagnosis: Secondary (2) Cocaine use ICD Code: F14.90 - Cocaine use, unspecified, uncomplicated Diagnosis: Principal (3) Hypertension ICD Code: I10 - Essential (primary) hypertension Diagnosis: Principal (4) Obese ICD Code: E66.9 - Obesity, unspecified Diagnosis: Secondary (5) Migraine ICD Code: G43.909 - Migraine, unspecified, not intractable, without status migrainosus Diagnosis: Secondary (6) Syncope ICD Code: R55 - Syncope and collapse Diagnosis: Principal Status: Acute Procedures EEG negative Brief History - From Admission Patient is a 32-year-old female. Who for the last 3 days has had 3 syncopal episodes. The first 1 happened when she came out of the bathroom walking down the fish. Her boyfriend heard a thump and came sent and found her face down on the hallway floor she rapidly regained consciousness and did not have any seizure-like activity noted then yesterday it happened again in the bathroom after having urinated she stood up she states she fell backwards and hit her head in the bathroom sink but did not feel any lump or injury no loss of consciousness quickly regained her mentation again. Patient denies any history of seizures or syncope in the past sometimes has some vertigo-like symptoms then it happened again last night but denies any shortness of breath or chest pain patient has a history of this cholecystectomy as well as section as well as tubal ligation head trauma surgery to her knee on the right had a birthmark removed from her left neck and cheek Will be placed in observation for evaluation regarding syncope and will consult neurology and get EEGs echoes and carotid Dopplers So far the only thing positive is the cocaine in her urine CBC/BMP: 06/02/17 0630 06/02/17 0630 Significant Findings Laboratory Tests Test 06/01/17 07:26 06/01/17 07:27 06/01/17 08:17 06/01/17 13:57 Neutrophils (%) (Auto) 70.3 % (16.0-70.0) Total Protein 9.3 GM/DL (6.4-8.2) Troponin I LESS THAN 0.02 NG/ML LESS THAN 0.02 NG/ML Urine Mucus FEW /lpf (OCC) Urine Cocaine Screen POS (NEG) Test 06/02/17 06:30 Red Blood Count 3.88 MIL/MM3 (4.00-5.30) Hemoglobin 11.5 GM/DL (11.6-15.3) Hematocrit 34.1 % (35.0-46.0) Albumin 2.9 GM/DL (3.4-5.0) Calcium Level 8.1 MG/DL (8.5-10.1) Alkaline Phosphatase 40 U/L (45-117) Aspartate Amino Transf (AST/SGOT) 9 U/L (15-37) Imaging Last Impressions Head CT 06/01/17 0842 Signed Impressions: Service Date/Time: June 09:01 - CONCLUSION: Normal examination. Javid Whalen MD Chest X-Ray 06/01/17 0842 Signed Impressions: Service Date/Time: June 09:18 - CONCLUSION: No acute disease. Ariel Pitt MD Carotid Artery Ultrasound 06/01/17 0000 Signed Impressions: Service Date/Time: June 11:10 - CONCLUSION: Normal examination. Brian Alvarado MD PE at Discharge GENERAL: This is a well-nourished, well-developed patient, in no apparent distress. SKIN: No rashes, ecchymoses or lesions. Cool and dry. HEAD: Atraumatic. Normocephalic. No temporal or scalp tenderness. EYES: Pupils equal round and reactive. Extraocular motions intact. No scleral icterus. No injection or drainage. ENT: Nose without bleeding, purulent drainage or septal hematoma. Throat without erythema, tonsillar hypertrophy or exudate. Uvula midline. Airway patent. Tongue is midline NECK: Trachea midline. No JVD or lymphadenopathy. Supple, nontender, no meningeal signs. CARDIOVASCULAR: Regular rate and rhythm without murmurs, gallops, or rubs. S1- S2 no S3 or S4 RESPIRATORY: Clear to auscultation. Breath sounds equal bilaterally. No wheezes , rales, or rhonchi. GASTROINTESTINAL: Abdomen soft, non-tender, nondistended. No hepato-splenomegaly , or palpable masses. No guarding. Obese MUSCULOSKELETAL: Extremities without clubbing, cyanosis, or edema. No joint tenderness, effusion, or edema noted. No calf tenderness. Negative Homans sign bilaterally. NEUROLOGICAL: Awake and alert. Cranial nerves II through XII intact. Motor and sensory grossly within normal limits. Five out of 5 muscle strength in all muscle groups. Normal speech. Insight and judgment is good Mood and behavior is appropriate Hospital Course Patient is a 32-year-old female. Who for the last 3 days has had 3 syncopal episodes. The first 1 happened when she came out of the bathroom walking down the fish. Her boyfriend heard a thump and came sent and found her face down on the hallway floor she rapidly regained consciousness and did not have any seizure-like activity noted then yesterday it happened again in the bathroom after having urinated she stood up she states she fell backwards and hit her head in the bathroom sink but did not feel any lump or injury no loss of consciousness quickly regained her mentation again. Patient denies any history of seizures or syncope in the past sometimes has some vertigo-like symptoms then it happened again last night but denies any shortness of breath or chest pain patient has a history of this cholecystectomy as well as section as well as tubal ligation head trauma surgery to her knee on the right had a birthmark removed from her left neck and cheek Will be placed in observation for evaluation regarding syncope and will not consult neurology and get EEGs echoes and carotid Dopplers So far the only thing positive is the cocaine in her urine 3-2 all studies have been negative. EEG is negative CAT scan of the brain is negative Carotid ultrasounds are negative Physical therapy and occupational therapy have cleared her completely He will be discharged home We will need a note to return to work We will discharge to home today Recommend smoking cessation Recommend alcohol cessation Recommend marijuana cessation Recommend cocaine cessation Pt Condition on Discharge: Fair Discharge Disposition: Discharge Home Discharge Time: <= 30 minutes Discharge Instructions DIET: Follow Instructions for: As Tolerated, No Restrictions, Heart Healthy Diet Speech Therapy-Diet Recommends: Regular Activities you can perform: Regular-No Restrictions Follow up Referrals: PCP Follow-up - 1 Week Continued Medications: Albuterol 8.5 GM Inh (Proair Hfa 8.5 GM Inh) 90 Mcg/Act Aer 2 PUFF INH Q4HR PRN for SHORTNESS OF BREATH, #1 INHALER 0 Refills (This prescription has been renewed) 108 mcg/actuation Lisinopril (Lisinopril) 10 Mg Tab 10 MG PO DAILY for Blood Pressure Management, #30 TAB 0 Refills (This prescription has been renewed) Raul Neal DO Jun 02, 2017 10:44
--- NOTE | 2017-06-04 13:26 | HM ---
Date Performed: 06/01/2017 Time Performed: 16:55:00 HOOKUP DATE: 06/01/17 04:55:00 PM [facility] ANALYSIS START TIME: 06/01/2017 5:00:00 PM ANALYSIS END TIME: 06/02/2017 10:50:22 AM PATIENT AGE: 32 PATIENT HEIGHT PATIENT WEIGHT DRUG LIST PATIENT DIAGNOSIS TEST NARRATIVE: The patient's average heart rate was 61 BPM. Heart rates greater than 120 B PM were noted < 1% of the time. Heart rates less than 50 BPM were noted 32% of the time. No paus es exceeding 2.0 seconds were noted. 1 ventricular ectopics, which represented < 1% of the total beat count, were noted. The highest ventricular ectopic frequency occurred from 06:00 AM to 07:00 AM Fri. During this time 1 VE(s) occurred. Ventricular ectopics were observed as 1 isolated beat(s) o nly. No couplets or runs were noted. 31 supraventricular ectopics, which represented < 1% of the total beat count, were noted. The highest supraventricular ectopic frequency occurred from 08:00 AM to 09:00 AM Fri. During this time 12 SVE(s) occurred. No episodes of ST depression (defined as -1.0 mm or more) were noted in channel 1. No episodes of ST depression (defined as -1.0 mm or more) were noted in channel 2. No episodes of ST depression (defined as -1.0 mm or more) were noted in bautista nnel 3. PATIENT DIARY NOT RETURNED WITH HOLTER MONITOR. TEST INTERPRETATION: Sinus rhythm RARE PACs Signed by : Javid Green or
== END 2017-06-02 12:02 | disposition home or self-care (01) ==
LOC: NEPE 06:10 → NEDA 08:46 → NEPFCDU 10:07
PROVIDERS: ADMIT Hospitalist; ATTEND Hospitalist
DX: R55 Syncope and collapse (principal); I10 Essential (primary) hypertension; R00.0 Tachycardia, unspecified; F12.90 Cannabis use, unspecified, uncomplicated; F14.90 Cocaine use, unspecified, uncomplicated; G43.909 Migraine, unspecified, not intractable, without status migrainosus; J45.909 Unspecified asthma, uncomplicated; R73.03 Prediabetes; E66.9 Obesity, unspecified; F17.200 Nicotine dependence, unspecified, uncomplicated; Z79.899 Other long term (current) drug therapy; W19.XXXA Unspecified fall, initial encounter; W22.09XA Striking against other stationary object, initial encounter; Y92.002 Bathroom of unspecified non-institutional (private) residence as the place of occurrence of the external cause
CPT/HCPCS: 70450; 71045; 80053; 80307; 81001; 82550; 82948; 83690; 84484; 84703; 85025; 85610; 93005; 93225; 93226; 93306; 93880; 95819; 96360; 96361; 97110; 97116; 97161; 97166; 99285; G0378; G8987; G8988; J7030

== ENCOUNTER 2017-07-23 18:11 | Emergency (ER) | payer SELFPAY ==
[~2017-07-23] VITALS: Ht 167.6 cm; Wt 83.0 kg
[~2017-07-23 18:11] MED LIST changes: +LISI10TA3 PO; -PRED50 PO; -ZITHTAB PO
[2017-07-23 18:22] VITALS: BP 167/99; PULSE 112; RESP 16; TEMP 98.7; O2SAT 98
--- NOTE | 2017-07-23 18:48 | RADRPT ---
EXAM DATE/TIME: 07/23/2017 18:40 [facility] COMPARISON: CHEST SINGLE AP, June 01, 2017, 9:18. INDICATIONS : Chest pain, cough, shortness of breath and burning throat. MEDICAL HISTORY : Asthma. SURGICAL HISTORY : None. ENCOUNTER: Initial ACUITY: 1 week PAIN SCORE: 4/10 LOCATION: Bilateral chest FINDINGS: Portable AP view of the chest demonstrates a normal-sized cardiac silhouette. No effusion, consolidat ion, or pneumothorax is visualized. The bones and soft tissues demonstrate no acute abnormality. CONCLUSION: No acute cardiopulmonary abnormality is identified. Ariel Figueroa MD on July 23, 2017 at 18:45 Board Certified Radiologist. This report was verified electronically.
[2017-07-23] MEDS ORDERED: SODIUM CHLOR 0.9% 1000 ML INJ 1,000 ML IV SCH (20:42)
[2017-07-23] MEDS ORDERED: PANTOPRAZOLE SODIUM 40 MG VIAL IVP ONE (20:45)
[2017-07-23] MEDS ORDERED: ONDANSETRON HCL 4 MG/2 ML VIAL IVP ONE (20:45)
--- NOTE | 2017-07-23 20:45 | PD ---
HPI Chief Complaint: Cold / Flu Symptoms Time Seen by Provider: 20:30 Travel History International Travel<30 days: No Contact w/Intl Traveler<30days: No Traveled to known affect area: No History of Present Illness HPI This is a 32-year-old female who presents for evaluation of a cough. Symptoms started 2 months ago. She reports that the cough is primarily dry, occasionally productive with clear sputum, worse at night. She reports a burning sensation in her throat as well. She reports over the past few days she has had some nausea and episodes of emesis after eating. She denies abdominal pain, dysuria, flank pain, fevers or chills, chest pain or shortness of breath. She denies any history of GERD or peptic ulcer disease. She has remote history of cocaine abuse but has not used any in the past month. Has no other complaints at this time. PFSH Past Medical History Asthma: Yes Blood Disorders: No Anxiety: No Depression: Yes Heart Rhythm Problems: No Cancer: No Cardiovascular Problems: No High Cholesterol: No Chemotherapy: No Chest Pain: No Congestive Heart Failure: No Diabetes: No (BORDERLINE) Diminished Hearing: No Endocrine: No Genitourinary: No Headaches: Yes Hypertension: Yes Immune Disorder: No Musculoskeletal: No Neurologic: No Psychiatric: No Reproductive: No Respiratory: No Migraines: Yes Radiation Therapy: No Thyroid Disease: No ?: Not LMP: TUBAL Para: 3 Tubal Ligation: Yes Past Surgical History Section: Yes Cholecystectomy: Yes Eye Surgery: Yes (PLATE UNDER LEFT EYE) Other Surgery: Yes ( ERASMO REMOVED FROM NECK) Social History Alcohol Use: Yes (RARELY) Tobacco Use: Yes (1/4 PPD) Substance Use: No Allergies-Medications (Allergen,Severity, Reaction): Coded Allergies: Penicillins (Verified Allergy, Severe, RESPIRATORY DISTRESS, 02/19/17) amoxicillin (Verified Allergy, Severe, RESPIRATORY DISTRESS, 02/19/17) sumatriptan (Verified Allergy, Severe, RESPIRATORY DISTRESS, 02/19/17) latex (Verified Allergy, Mild, Rash, 02/19/17) Reported Meds & Prescriptions Reported Meds & Active Scripts Active Zofran (Ondansetron HCl) 4 Mg Tab 4 Mg PO Q6HR PRN Protonix (Pantoprazole Sodium) 20 Mg Tab 20 Mg PO DAILY Lisinopril 10 Mg Tab 10 Mg PO DAILY Proair Hfa 8.5 GM Inh (Albuterol Sulfate) 90 Mcg/Act Aer 2 Puff INH Q4HR PRN 108 mcg/actuation Review of Systems Except as stated in HPI: all other systems reviewed are Neg Physical Exam Narrative GENERAL: Well-developed well-nourished female no acute distress SKIN: Warm and dry. HEAD: Atraumatic. Normocephalic. EYES: Pupils equal and round. No scleral icterus. No injection or drainage. ENT: No nasal bleeding or discharge. Mucous membranes pink and moist. NECK: Trachea midline. No JVD. CARDIOVASCULAR: Regular rate and rhythm. No murmur appreciated. RESPIRATORY: No accessory muscle use. Clear to auscultation. Breath sounds equal bilaterally. GASTROINTESTINAL: Abdomen soft, non-tender, nondistended. Hepatic and splenic margins not palpable. MUSCULOSKELETAL: No obvious deformities. No clubbing. No cyanosis. No edema. NEUROLOGICAL: Awake and alert. No obvious cranial nerve deficits. Motor grossly within normal limits. Normal speech. PSYCHIATRIC: Appropriate mood and affect; insight and judgment normal. Data Data Last Documented VS Vital Signs Date Time Temp Pulse Resp B/P (MAP) Pulse Ox O2 Delivery O2 Flow Rate FiO2 07/23/17 18:22 98.7 112 16 167/99 (121) 98 Orders Orders Chest, Single Ap (07/23/17 18:25) Complete Blood Count With Diff (07/23/17 20:41) Comprehensive Metabolic Panel (07/23/17 20:41) Lipase (07/23/17 20:41) Iv Access Insert/Monitor (07/23/17 20:41) Ondansetron Inj (Zofran Inj) (07/23/17 20:45) Pantoprazole Inj (Protonix Inj) (07/23/17 20:45) Ed Urine Pregnancytest Poc (07/23/17 20:41) Sodium Chlor 0.9% 1000 Ml Inj (Ns 1000 M (07/23/17 20:42) Labs Laboratory Tests Test 07/23/17 21:10 White Blood Count 10.8 TH/MM3 Red Blood Count 4.35 MIL/MM3 Hemoglobin 12.8 GM/DL Hematocrit 37.5 % Mean Corpuscular Volume 86.2 FL Mean Corpuscular Hemoglobin 29.5 PG Mean Corpuscular Hemoglobin Concent 34.2 % Red Cell Distribution Width 13.2 % Platelet Count 298 TH/MM3 Mean Platelet Volume 8.0 FL Neutrophils (%) (Auto) 76.8 % Lymphocytes (%) (Auto) 15.4 % Monocytes (%) (Auto) 6.6 % Eosinophils (%) (Auto) 1.0 % Basophils (%) (Auto) 0.2 % Neutrophils # (Auto) 8.3 TH/MM3 Lymphocytes # (Auto) 1.7 TH/MM3 Monocytes # (Auto) 0.7 TH/MM3 Eosinophils # (Auto) 0.1 TH/MM3 Basophils # (Auto) 0.0 TH/MM3 CBC Comment DIFF FINAL Differential Comment Blood Urea Nitrogen 8 MG/DL Creatinine 0.84 MG/DL Random Glucose 88 MG/DL Total Protein 8.8 GM/DL Albumin 3.7 GM/DL Calcium Level 8.9 MG/DL Alkaline Phosphatase 52 U/L Aspartate Amino Transf (AST/SGOT) 14 U/L Alanine Aminotransferase (ALT/SGPT) 17 U/L Total Bilirubin 0.6 MG/DL Sodium Level 139 MEQ/L Potassium Level 3.5 MEQ/L Chloride Level 106 MEQ/L Carbon Dioxide Level 25.9 MEQ/L Anion Gap 7 MEQ/L Estimat Glomerular Filtration Rate 79 ML/MIN Lipase 104 U/L MDM Medical Decision Making Medical Screen Exam Complete: Yes Emergency Medical Condition: Yes Medical Record Reviewed: Yes Differential Diagnosis GERD, pneumonia, gastritis, peptic ulcer disease, pneumonia, reactive airway disease Narrative Course Physical examination is reassuring. Her abdomen is soft and nontender. Her lungs are clear to auscultation. I suspect her symptoms of chronic cough, worse at night, burning sensation in the throat, some emesis over the past few days it is more likely related to gastritis or GERD and a respiratory tract infection. A chest x-ray was obtained revealing no acute abnormalities. Basic lab work was ordered. The patient was given Zofran, Protonix and IV fluids. Lab work is reassuring. Chest x-ray is normal. Upon reexamination her symptoms have essentially resolved. The patient will be discharged with prescriptions for Protonix and Zofran. Diagnosis Primary Impression: GERD (gastroesophageal reflux disease) Additional Instructions: Medication as prescribed. Sleep with head elevated. Avoid eating 3 hours prior to bedtime. Follow-up with primary care physician. Return for any emergent medical conditions. Med/Other Pt SpecificInfo: Prescription(s) given Scripts Ondansetron (Zofran) 4 Mg Tab 4 MG PO Q6HR Y for NAUSEA OR VOMITING, #15 TAB 0 Refills Prov: Mahendra Lamb MD 07/23/17 Pantoprazole (Protonix) 20 Mg Tab 20 MG PO DAILY for Reflux, #30 TAB 0 Refills Prov: Mahendra Lamb MD 07/23/17 Disposition: 01 DISCHARGE HOME Condition: Stable Norris Ramirez Jul 23, 2017 20:45
[2017-07-23 21:46] LABS: AUTOMATED NEUTROPHIL # 8.3 TH/MM3 (1.8-7.7); BASOPHIL % 0.2 % (0.0-2.0); EOSINOPHIL # 0.1 TH/MM3 (0-0.4); HEMATOCRIT 37.5 % (35.0-46.0); HEMOGLOBIN 12.8 GM/DL (11.6-15.3); LYMPH % 15.4 % (9.0-44.0); LYMPHOCYTE # 1.7 TH/MM3 (1.0-4.8); MEAN CELL VOLUME 86.2 FL (80.0-100.0); MEAN CORPUSCULAR HEMOGLOBIN 29.5 PG (27.0-34.0); MEAN CORPUSCULAR HGB CONC 34.2 % (32.0-36.0); MONO % 6.6 % (0.0-8.0); MONOCYTE # 0.7 TH/MM3 (0-0.9); NEUT % 76.8 % (16.0-70.0); PLATELET COUNT 298 TH/MM3 (150-450); RED BLOOD COUNT 4.35 MIL/MM3 (4.00-5.30); RED CELL DISTRIBUTION WIDTH 13.2 % (11.6-17.2); WHITE BLOOD COUNT 10.8 TH/MM3 (4.0-11.0)
[2017-07-23 21:52] LABS: ALBUMIN 3.7 GM/DL (3.4-5.0); AST (GOT) 14 U/L (15-37); BICARBONATE 25.9 MEQ/L (21.0-32.0); BLOOD UREA NITROGEN 8 MG/DL (7-18); CALCIUM 8.9 MG/DL (8.5-10.1); CHLORIDE 106 MEQ/L (98-107); CREATININE 0.84 MG/DL (0.50-1.00); GLOMERULAR FILTRATION RATE 79 ML/MIN (>89); GLUCOSE,RANDOM 88 MG/DL (74-106); SODIUM (NA) 139 MEQ/L (136-145)
[2017-07-23 21:53] LABS: ALT (GPT) 17 U/L (10-53)
[2017-07-23 21:55] LABS: ALKALINE PHOSPHATASE 52 U/L (45-117); TOTAL BILIRUBIN ADULT 0.6 MG/DL (0.2-1.0); TOTAL PROTEIN 8.8 GM/DL (6.4-8.2)
[2017-07-23] MEDS ORDERED: ZOFR4TAB PO (22:01)
[2017-07-23] MEDS ORDERED: PANT20 PO (22:01)
== END 2017-07-23 22:33 | disposition home or self-care (01) ==
LOC: NEPE 18:11
DX: K21.9 Gastro-esophageal reflux disease without esophagitis (principal); J45.909 Unspecified asthma, uncomplicated; F32.9 Major depressive disorder, single episode, unspecified; I10 Essential (primary) hypertension; F17.210 Nicotine dependence, cigarettes, uncomplicated; Z88.0 Allergy status to penicillin; Z88.8 Allergy status to other drugs, medicaments and biological substances
CPT/HCPCS: 71045; 80053; 83690; 84703; 85025; 96361; 96374; 96375; 99284; C9113; J2405; J7030